=== PATIENT | female | born 1980 | race African-American/Black ===

== ENCOUNTER → 2016-10-21 | Outpatient (CLI) | payer MEDICAID | LOC: RAD 10:10 | PROVIDERS: ATTEND Internal Medicine Critical Care Medicine | DX: R91.1 Solitary pulmonary nodule (principal) | CPT/HCPCS: 71250 ==

== ENCOUNTER 2016-10-26 12:40 | Emergency (ER) | payer MEDICAID ==
--- NOTE | 2016-10-26 13:29 | ER Document Report ---
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 Patient notes initially started as a sore throat fever. Patient had a CT performed a few days prior when she first had the symptoms. Patient denies any other concerns. Patient does note dark sputum blood-tinged TRAVEL OUTSIDE OF THE [place] IN LAST 30 DAYS: No - HPI Onset: Last week Onset/Duration: Persistent Quality of pain: Achy Severity: Mild Pain Level: 1 Associated symptoms: Productive cough, Fever, Shortness of breath, Sore throat Exacerbated by: Denies Relieved by: Denies Similar symptoms previously: Yes Recently seen / treated by doctor: Yes - Related Data Allergies/Adverse Reactions: acetaminophen [Acetaminophen] Allergy (Verified 08/28/14 18:45) hives, throat sore diphenhydramine HCl [From Benadryl] Allergy (Verified 08/28/14 18:45) hydrocodone [Hydrocodone] Allergy (Verified 08/28/14 18:45) Sulfa (Sulfonamide Antibiotics) Allergy (Verified 08/28/14 18:45) sumatriptan [From Imitrex] Allergy (Verified 08/28/14 18:45) sumatriptan succinate [From Imitrex] Allergy (Verified 08/28/14 18:45) BANDAIDS Allergy (Uncoded 08/28/14 18:45) Blisters Past Medical History - Social History Smoking Status: Never Smoker Cigarette use (# per day): No Chew tobacco use (# tins/day): No Smoking Education Provided: No Family History: Reviewed & Not Pertinent - Past Medical History Cardiac Medical History: Reports: Hx Hypertension Denies: Hx Coronary Artery Disease, Hx Heart Attack Pulmonary Medical History: Reports: Hx Asthma Denies: Hx Bronchitis, Hx COPD, Hx Pneumonia, Hx Tuberculosis Neurological Medical History: Reports: Hx Migraine. Denies: Hx Cerebrovascular Accident, Hx Seizures Renal/ Medical History: Reports: Hx Ectopic , Hx Kidney Stones, Hx Ovarian Cysts - left ovary removed. Denies: Hx Peritoneal Dialysis GI Medical History: Reports: Hx Gastroesophageal Reflux Disease. Denies: Hx Crohn's Disease, Hx Diverticulitis, Hx Hepatitis, Hx Hiatal Hernia, Hx Irritable Bowel, Hx Ulcer, Hx Ulcerative Colitis Musculoskeltal Medical History: Reports Hx Arthritis - RT SHOULDER, Reports Hx Musculoskeletal Trauma - rotator cuff injury Psychiatric Medical History: Reports: Hx Depression - post with 1st Infectious Medical History: Denies: Hx Hepatitis Past Surgical History: Reports: Hx Cholecystectomy, Hx Genitourinary Surgery - LEEP, Hx Gynecologic Surgery - right oophorectomy and salpingectomy, hemorrhagic left corpus luteum cyst, Hx Kidney (Renal Surgery) - urethral stricture, Hx Orthopedic Surgery - right hand, Hx Tubal Ligation - left side, Hx Urinary Tract Surgery - URETHRAL STRICTURE. Denies: Hx Hysterectomy, Hx Mastectomy, Hx Open Heart Surgery, Hx Pacemaker - Immunizations Hx Diphtheria, Pertussis, Tetanus Vaccination: Yes Review of Systems - Review of Systems Notes: REVIEW OF SYSTEMS: CONSTITUTIONAL : Denies fever, chills, or sweats. Denies recent illness. EENT: Admits to sore throat CARDIOVASCULAR: Denies chest pain. Denies palpitations or racing or irregular heart beat. Denies ankle edema. RESPIRATORY: Admits cough shortness of breath productive GASTROINTESTINAL: Denies abdominal pain or distention. Denies nausea, vomiting , or diarrhea. Denies blood in vomitus, stools, or per rectum. Denies black, tarry stools. Denies constipation. GENITOURINARY: Denies difficulty urinating, painful urination, burning, frequency, blood in urine, or discharge. FEMALE GENITOURINARY: Denies vaginal bleeding, heavy or abnormal periods, irregular periods. Denies vaginal discharge or odor. MUSCULOSKELETAL: Denies back or neck pain or stiffness. Denies joint pain or swelling. SKIN: Denies rash, lesions or sores. HEMATOLOGIC : Denies easy bruising or bleeding. LYMPHATIC: Denies swollen, enlarged glands. NEUROLOGICAL: Denies confusion or altered mental status. Denies passing out or loss of consciousness. Denies dizziness or lightheadedness. Denies headache. Denies weakness or paralysis or loss of use of either side. Denies problems with gait or speech. Denies sensory loss, numbness, or tingling. Denies seizures. PSYCHIATRIC: Denies anxiety or stress. Denies depression, suicidal ideation, or homicidal ideation. ALL OTHER SYSTEMS REVIEWED AND NEGATIVE. Dictation was performed using [email or web address] recognition software PHYSICAL EXAMINATION: GENERAL: Well-appearing, well-nourished and in no acute distress. HEAD: Atraumatic, normocephalic. EYES: Pupils equal round and reactive to light, extraocular movements intact, conjunctiva are normal. ENT: Nares patent, oropharynx clear without exudates. Moist mucous membranes. NECK: Normal range of motion, supple without lymphadenopathy LUNGS: Breath sounds clear to auscultation bilaterally and equal. No wheezes rales or rhonchi. HEART: Regular rate and rhythm without murmurs ABDOMEN: Soft, nontender, nondistended abdomen. No guarding, no rebound. No masses appreciated. Female : deferred Musculoskeletal: Normal range of motion, no pitting or edema. No cyanosis. NEUROLOGICAL: Cranial nerves grossly intact. Normal speech, normal gait. Normal sensory, motor exams PSYCH: Normal mood, normal affect. SKIN: Warm, Dry, normal turgor, no rashes or lesions noted. Physical Exam - Vital signs Vitals: Temp Pulse Resp BP Pulse Ox 97.6 F 84 20 147/91 H 99 10/26/16 12:46 10/26/16 12:46 10/26/16 12:46 10/26/16 12:46 10/26/16 12:46 Course - Re-evaluation Re-evalutation: 10/26/16 13:29 Patient physical examinations in no respiratory distress is satting 100% on room air, she requests a rapid strep test which I believe is her biggest concern. Otherwise patient stable, chest x-rays pending 10/26/16 14:23 Lab work imaging note no significant abnormality patient consistently satting well in no distress patient is stable for discharge review of previous CT noted and result given to patient After performing a Medical Screening Examination, I estimate there is LOW risk for ACUTE CORONARY SYNDROME, RESPIRATORY FAILURE, SEPSIS OR MENINGITIS, thus I consider the discharge disposition reasonable. I have reevaluated this patient multiple times and no significant life threatening changes are noted. The patient and I have discussed the diagnosis and risks, and we agree with discharging home with close follow-up. We also discussed returning to the Emergency Department immediately if new or worsening symptoms occur. We have discussed the symptoms which are most concerning (e.g., changing or worsening pain, trouble swallowing or breathing, neck stiffness, fever) that necessitate immediate return. - Vital Signs Vital signs: Temp Pulse Resp BP Pulse Ox 97.6 F 84 20 147/91 H 99 04/15/17 12:46 10/26/16 12:46 10/26/16 12:46 10/26/16 12:46 10/26/16 12:46 - Diagnostic Test Radiology reviewed: Image reviewed, Reports reviewed Discharge - Discharge Clinical Impression: SOB (shortness of breath) Condition: Stable Disposition: HOME, SELF-CARE Instructions: Dyspnea, Nonspecific ([facility]) Referrals: YAW CORDON MD [Primary Care Provider] - Follow up as needed SUZANNA MEADOWS MD [ACTIVE STAFF] - Follow up tomorrow
[2016-10-26 14:31] VITALS: BP 145/85
== END 2016-10-26 14:29 | disposition home or self-care (01) ==
LOC: ER 12:40
DX: R06.02 Shortness of breath (principal); R05 Cough; J02.9 Acute pharyngitis, unspecified; R50.9 Fever, unspecified
CPT/HCPCS: 71020; 87070; 87880; 99285

== ENCOUNTER 2017-04-17 12:10 | Emergency (ER) | payer MEDICAID ==
[2017-04-17] MEDS ORDERED: IPRATROPIUM/ALBUTEROL 0.5-2.5 MG/3 ML AMPUL NEB ONE ×2 (12:27)
[2017-04-17] MEDS ORDERED: PREDNISONE 20 MG TABLET PO ONE (12:27)
--- NOTE | 2017-04-17 12:27 | ER Document Report ---
ED General - General Chief Complaint: Productive Cough Stated Complaint: BAD COUGH Time Seen by Provider: 04/17/17 12:24 Mode of Arrival: Ambulatory Information source: Patient Notes: 36-year-old female hx of asthma presents with 1 month duration of cough productive yellow. Pt denies any fevers or chills. denies any nasea or vomiting. pt has been taking mucinex with no improvement TRAVEL OUTSIDE OF THE [place] IN LAST 30 DAYS: No - HPI Onset: Other Onset/Duration: Persistent Quality of pain: No pain Severity: Mild Pain Level: Denies Associated symptoms: Productive cough, Shortness of breath Exacerbated by: Denies Relieved by: Denies Similar symptoms previously: No Recently seen / treated by doctor: No - Related Data Allergies/Adverse Reactions: acetaminophen [Acetaminophen] Allergy (Verified 04/17/17 12:21) hives, throat sore diphenhydramine HCl [From Benadryl] Allergy (Verified 04/17/17 12:21) hydrocodone [Hydrocodone] Allergy (Verified 04/17/17 12:21) Sulfa (Sulfonamide Antibiotics) Allergy (Verified 04/17/17 12:21) sumatriptan [From Imitrex] Allergy (Verified 04/17/17 12:21) sumatriptan succinate [From Imitrex] Allergy (Verified 04/17/17 12:21) BANDAIDS Allergy (Uncoded 08/28/14 18:45) Blisters Past Medical History - Social History Smoking Status: Never Smoker Cigarette use (# per day): No Chew tobacco use (# tins/day): No Smoking Education Provided: No Family History: Reviewed & Not Pertinent - Past Medical History Cardiac Medical History: Reports: Hx Hypertension Denies: Hx Coronary Artery Disease, Hx Heart Attack Pulmonary Medical History: Reports: Hx Asthma Denies: Hx Bronchitis, Hx COPD, Hx Pneumonia, Hx Tuberculosis Neurological Medical History: Reports: Hx Migraine. Denies: Hx Cerebrovascular Accident, Hx Seizures Renal/ Medical History: Reports: Hx Ectopic , Hx Kidney Stones, Hx Ovarian Cysts - left ovary removed. Denies: Hx Peritoneal Dialysis GI Medical History: Reports: Hx Gastroesophageal Reflux Disease. Denies: Hx Crohn's Disease, Hx Diverticulitis, Hx Hepatitis, Hx Hiatal Hernia, Hx Irritable Bowel, Hx Ulcer, Hx Ulcerative Colitis Musculoskeltal Medical History: Reports Hx Arthritis - RT SHOULDER, Reports Hx Musculoskeletal Trauma - rotator cuff injury Psychiatric Medical History: Reports: Hx Depression - post with 1st Infectious Medical History: Denies: Hx Hepatitis Past Surgical History: Reports: Hx Cholecystectomy, Hx Genitourinary Surgery - LEEP, Hx Gynecologic Surgery - right oophorectomy and salpingectomy, hemorrhagic left corpus luteum cyst, Hx Kidney (Renal Surgery) - urethral stricture, Hx Orthopedic Surgery - right hand, Hx Tubal Ligation - left side, Hx Urinary Tract Surgery - URETHRAL STRICTURE. Denies: Hx Hysterectomy, Hx Mastectomy, Hx Open Heart Surgery, Hx Pacemaker - Immunizations Hx Diphtheria, Pertussis, Tetanus Vaccination: Yes Review of Systems - Review of Systems Notes: REVIEW OF SYSTEMS: CONSTITUTIONAL : Denies fever, chills, or sweats. Denies recent illness. EENT: Denies eye, ear, throat, or mouth pain or symptoms. Denies nasal or sinus congestion or discharge. Denies throat, tongue, or mouth swelling or difficulty swallowing. CARDIOVASCULAR: Denies chest pain. Denies palpitations or racing or irregular heart beat. Denies ankle edema. RESPIRATORY: admits to productive cough GASTROINTESTINAL: Denies abdominal pain or distention. Denies nausea, vomiting , or diarrhea. Denies blood in vomitus, stools, or per rectum. Denies black, tarry stools. Denies constipation. GENITOURINARY: Denies difficulty urinating, painful urination, burning, frequency, blood in urine, or discharge. FEMALE GENITOURINARY: Denies vaginal bleeding, heavy or abnormal periods, irregular periods. Denies vaginal discharge or odor. MUSCULOSKELETAL: Denies back or neck pain or stiffness. Denies joint pain or swelling. SKIN: Denies rash, lesions or sores. HEMATOLOGIC : Denies easy bruising or bleeding. LYMPHATIC: Denies swollen, enlarged glands. NEUROLOGICAL: Denies confusion or altered mental status. Denies passing out or loss of consciousness. Denies dizziness or lightheadedness. Denies headache. Denies weakness or paralysis or loss of use of either side. Denies problems with gait or speech. Denies sensory loss, numbness, or tingling. Denies seizures. PSYCHIATRIC: Denies anxiety or stress. Denies depression, suicidal ideation, or homicidal ideation. ALL OTHER SYSTEMS REVIEWED AND NEGATIVE. PHYSICAL EXAMINATION: GENERAL: Well-appearing, well-nourished and in no acute distress. HEAD: Atraumatic, normocephalic. EYES: Pupils equal round and reactive to light, extraocular movements intact, conjunctiva are normal. ENT: Nares patent, oropharynx clear without exudates. Moist mucous membranes. NECK: Normal range of motion, supple without lymphadenopathy LUNGS: coarse wheezing. HEART: Regular rate and rhythm without murmurs ABDOMEN: Soft, nontender, nondistended abdomen. No guarding, no rebound. No masses appreciated. Female : deferred Musculoskeletal: Normal range of motion, no pitting or edema. No cyanosis. NEUROLOGICAL: Cranial nerves grossly intact. Normal speech, normal gait. Normal sensory, motor exams PSYCH: Normal mood, normal affect. SKIN: Warm, Dry, normal turgor, no rashes or lesions noted. Dictation was performed using [employer] voice recognition software Physical Exam - Vital signs Vitals: Temp Pulse BP Pulse Ox 98.6 F 91 146/111 H 98 04/17/17 12:19 04/17/17 12:19 04/17/17 12:19 04/17/17 12:19 Course - Re-evaluation Re-evalutation: 04/17/17 12:32 X-ray DuoNeb steroids pending 04/17/17 13:36 X-ray noted no significant abnormality, patient has no DVT or PE risk factors, since she has had a productive cough for 1 month and will start antibiotics even though no obvious pneumonia is noted After performing a Medical Screening Examination, I estimate there is LOW risk for malignant otitis media, mastoiditis, MENINGITIS, or ACUTE CORONARY SYNDROME , thus I consider the discharge disposition reasonable. I have reevaluated this patient multiple times and no significant life threatening changes are noted. The patient and I have discussed the diagnosis and risks, and we agree with discharging home to follow-up on an outpatient basis with the understanding that symptoms and presentations can change. We also discussed returning to the Emergency Department immediately if new or worsening symptoms occur. We have discussed the symptoms which are most concerning (e.g., high fevers, confusion) that necessitate immediate return. - Vital Signs Vital signs: Temp Pulse Resp BP Pulse Ox 98.6 F 91 146/111 H 98 04/17/17 12:19 04/17/17 12:19 04/17/17 12:19 04/17/17 12:19 - Diagnostic Test Radiology reviewed: Image reviewed, Reports reviewed Discharge - Discharge Clinical Impression: Pneumonia Qualifiers: Pneumonia type: due to unspecified organism Laterality: unspecified laterality Lung location: unspecified part of lung Qualified Code(s): J18.9 - Pneumonia, unspecified organism Condition: Stable Disposition: HOME, SELF-CARE Instructions: Pneumonia ([facility]) Additional Instructions: Follow up with your physician tomorrow for further care or return to the ED IMMEDIATELY if symptoms worsen or new concerns occur. If you cannot afford to follow up with your primary care physician a list of low cost clinics have been provided at the end of your discharge papers as well. Prescriptions: Azithromycin 250 mg PO ASDIR PRN #6 tablet PRN Reason: Prednisone [Deltasone 20 mg Tablet] 3 tab PO DAILY 5 Days tablet
--- NOTE | 2017-04-17 13:33 | RADIOLOGY REPORT (SQ) ---
EXAM DESCRIPTION: CHEST PA/LAT COMPLETED DATE/TIME: 04/17/2017 12:38 pm REASON FOR STUDY: sob asthma COMPARISON: Chest films 08/28/2014, 10/26/2016 CT chest 10/21/2016, 04/07/2015 EXAM PARAMETERS: NUMBER OF VIEWS: two views TECHNIQUE: Digital Frontal and Lateral radiographic views of the chest acquired. RADIATION DOSE: NA LIMITATIONS: none FINDINGS: LUNGS AND PLEURA: No opacities, masses or pneumothorax. No pleural effusion. MEDIASTINUM AND HILAR STRUCTURES: No masses or contour abnormalities. HEART AND VASCULAR STRUCTURES: Heart normal size. No evidence for failure. BONES: No acute findings. HARDWARE: Clips right upper quadrant post cholecystectomy OTHER: No other significant finding. IMPRESSION: NO SIGNIFICANT RADIOGRAPHIC FINDING IN THE CHEST. TECHNICAL DOCUMENTATION: JOB ID: [id number] [employer]- All Rights Reserved
[2017-04-17 13:56] VITALS: BP 144/88
== END 2017-04-17 13:56 | disposition home or self-care (01) ==
LOC: ER 12:10
DX: J18.9 Pneumonia, unspecified organism (principal); I10 Essential (primary) hypertension; Z88.6 Allergy status to analgesic agent; Z88.2 Allergy status to sulfonamides; Z90.49 Acquired absence of other specified parts of digestive tract
CPT/HCPCS: 94640 ×2; 99283; 71020; J7512; J7620

== ENCOUNTER 2017-10-08 13:37 | Emergency (ER) | payer MEDICAID ==
[2017-10-08] MEDS ORDERED: ALBUTEROL SULFATE 0.083% NEB 2.5 MG/3 ML AMPUL NEB ONE (14:04)
--- NOTE | 2017-10-08 14:06 | ER Document Report ---
ED Medical Screen (RME) - General Chief Complaint: Breathing Difficulty Stated Complaint: DIFFICULTY BREATHING Time Seen by Provider: 10/08/17 14:04 Notes: Patient presents with shortness of breath weakness mild chest pain and dizziness. She states she has a history of asthma but this does not feel like her asthma attack. She also states she has a history of blood clots and took Coumadin for approximately 6 months. She states she is unsure if the clot was in her leg or her lung. She states it happened several years ago while she was . She does not smoke but is currently on the Depakote shot. Patient is tachycardic and tachypneic with shallow respirations in triage. Sats are 100 %. TRAVEL OUTSIDE OF THE [place] IN LAST 30 DAYS: No - Related Data Allergies/Adverse Reactions: acetaminophen [Acetaminophen] Allergy (Verified 04/17/17 12:21) hives, throat sore diphenhydramine HCl [From Benadryl] Allergy (Verified 04/17/17 12:21) hydrocodone [Hydrocodone] Allergy (Verified 04/17/17 12:21) Sulfa (Sulfonamide Antibiotics) Allergy (Verified 04/17/17 12:21) sumatriptan [From Imitrex] Allergy (Verified 04/17/17 12:21) sumatriptan succinate [From Imitrex] Allergy (Verified 04/17/17 12:21) BANDAIDS Allergy (Uncoded 08/28/14 18:45) Blisters Past Medical History - Social History Chew tobacco use (# tins/day): No Frequency of alcohol use: None Drug Abuse: Marijuana Family history: Reviewed & Not Pertinent - Past Medical History Cardiac Medical History: Reports: Hx Hypertension Denies: Hx Coronary Artery Disease, Hx Heart Attack Pulmonary Medical History: Reports: Hx Asthma Denies: Hx Bronchitis, Hx COPD, Hx Pneumonia, Hx Tuberculosis Neurological Medical History: Reports: Hx Migraine. Denies: Hx Cerebrovascular Accident, Hx Seizures Renal/ Medical History: Reports: Hx Ectopic , Hx Kidney Stones, Hx Ovarian Cysts - left ovary removed. Denies: Hx Peritoneal Dialysis GI Medical History: Reports: Hx Gastroesophageal Reflux Disease. Denies: Hx Crohn's Disease, Hx Diverticulitis, Hx Hepatitis, Hx Hiatal Hernia, Hx Irritable Bowel, Hx Ulcer, Hx Ulcerative Colitis Musculoskeltal Medical History: Reports Hx Arthritis - RT SHOULDER, Reports Hx Musculoskeletal Trauma - rotator cuff injury Psychiatric Medical History: Reports: Hx Depression - post with 1st Infectious Medical History: Denies: Hx Hepatitis Past Surgical History: Reports: Hx Cholecystectomy, Hx Genitourinary Surgery - LEEP, Hx Gynecologic Surgery - right oophorectomy and salpingectomy, hemorrhagic left corpus luteum cyst, Hx Kidney (Renal Surgery) - urethral stricture, Hx Orthopedic Surgery - right hand, Hx Tubal Ligation - left side, Hx Urinary Tract Surgery - URETHRAL STRICTURE. Denies: Hx Hysterectomy, Hx Mastectomy, Hx Open Heart Surgery, Hx Pacemaker - Immunizations Hx Diphtheria, Pertussis, Tetanus Vaccination: Yes History of Influenza Vaccine for 04/2017 - 09/2017 Season: No Physical Exam - Vital signs Vitals: Pulse Resp BP Pulse Ox 126 H 28 H 160/137 H 100 10/08/17 13:42 10/08/17 13:42 10/08/17 13:42 10/08/17 13:42 Course - Vital Signs Vital signs: Temp Pulse Resp BP Pulse Ox 126 H 28 H 160/137 H 100 10/08/17 13:42 10/08/17 13:42 10/08/17 13:42 10/08/17 13:42
--- NOTE | 2017-10-08 14:31 | EKG REPORT ---
SEVERITY:- BORDERLINE ECG - SINUS TACHYCARDIA PROBABLE LEFT ATRIAL ABNORMALITY BORDERLINE T WAVE ABNORMALITIES, ANTEROLATERAL LEADS, NEW, COMPARED TO 08/28/17 EKG. : Confirmed by: Luigi Boyce MD 08-Oct-2017 14:30:40
[2017-10-08 15:18] LABS: ABSOLUTE LYMPHOCYTES (AUTO) 2.6 10^3/uL (0.5-4.7); ABSOLUTE MONOCYTES (AUTO) 0.3 10^3/uL (0.1-1.4); ABSOLUTE NEUT (AUTO) 3.5 10^3/uL (1.7-8.2); BASOPHILS % (AUTO) 0.7 % (0-2); EOSINOPHILS % (AUTO) 0.7 % (0-6); HEMATOCRIT 44.2 % (36.0-47.0); HEMOGLOBIN 14.3 g/dL (12.0-15.5); LYMPHOCYTES % (AUTO) 39.9 % (13-45); MEAN CORPUSCULAR HEMOGLOBIN 26.6 pg (27.0-33.4); MEAN CORPUSCULAR HGB CONC 32.4 g/dL (32.0-36.0); MEAN CORPUSCULAR VOLUME 82 fl (80-97); MONOCYTES % (AUTO) 4.8 % (3-13); PLATELET COUNT 376 10^3/uL (150-450); RED BLOOD COUNT 5.38 10^6/uL (3.72-5.28); RED CELL DISTRIBUTION WIDTH 14.6 % (11.5-14.0); SEGMENTED NEUTROPHILS % (AUTO) 53.9 % (42-78); TOTAL CELLS COUNTED % (AUTO) 100 %; WHITE BLOOD COUNT 6.5 10^3/uL (4.0-10.5)
[2017-10-08 15:32] LABS: ALANINE AMINOTRANSFERASE 23 U/L (9-52); ALBUMIN 4.4 g/dL (3.5-5.0); ALKALINE PHOSPHATASE 77 U/L (38-126); ANION GAP 11 (5-19); ASPARTATE AMINO TRANSFERASE 17 U/L (14-36); BILIRUBIN,DIRECT 0.3 mg/dL (0.0-0.4); BILIRUBIN,TOTAL 0.5 mg/dL (0.2-1.3); BLOOD UREA NITROGEN 10 mg/dL (7-20); CALCIUM 10.1 mg/dL (8.4-10.2); CARBON DIOXIDE 25 mmol/L (22-30); CHLORIDE 109 mmol/L (98-107); GLUCOSE 93 mg/dL (75-110); POTASSIUM 3.8 mmol/L (3.6-5.0); SODIUM 144.5 mmol/L (137-145); TOTAL PROTEIN 7.7 g/dL (6.3-8.2)
[2017-10-08 15:44] LABS: NT PRO BNP 28 pg/mL (<125)
[2017-10-08 15:45] LABS: TROPONIN I < 0.012 ng/mL
[2017-10-08 16:05] LABS: APPEARANCE,URINE SLIGHTLY-CLOUDY; BILIRUBIN,URINE NEGATIVE (NEGATIVE); COLOR,URINE YELLOW; GLUCOSE, URINE NEGATIVE (NEGATIVE); KETONES,URINE NEGATIVE (NEGATIVE); LEUKOCYTE ESTERASE,URINE NEGATIVE (NEGATIVE); NITRITE,URINE NEGATIVE (NEGATIVE); PROTEIN,URINE NEGATIVE (NEGATIVE); URINE SPECIFIC GRAVITY 1.023
--- NOTE | 2017-10-08 16:40 | RADIOLOGY REPORT (SQ) ---
EXAM DESCRIPTION: CTA CHEST COMPLETED DATE/TIME: 10/08/2017 4:18 pm REASON FOR STUDY: cp/sob/hx dvt COMPARISON: Chest x-ray 04/17/2017 CT chest 10/21/2016 TECHNIQUE: CT scan of the chest performed using helical scanning technique with dynamic intravenous contrast injection. Images reviewed with lung, soft tissue and bone windows. Reconstructed coronal and sagittal MPR images reviewed. Additional 3 dimensional post-processing performed to develop Maximal Intensity Projection images (VT P). All images stored on PACS. All CT scanners at this facility use dose modulation, iterative reconstruction, and/or weight based d osing when appropriate to reduce radiation dose to as low as reasonably achievable (ALARA). [facility]: Dose Right [facility]: CareDose [facility]: Dose Right [facility]: Teradose 4D [facility]: [employer] CONTRAST TYPE AND DOSE: contrast/concentration: Isovue 370.00 mg/ml; Total Contrast Delivered: 67.0 ml; Total Saline Delivered: 59.6 ml Contrast bolus optimized for the pulmonary arteries. Not diagnostic for the aorta. RENAL FUNCTION: BUN 10 creatinine 0.74 RADIATION DOSE: CT Rad equipment meets quality standard of care and radiation dose reduction techniq ues were employed. CTDIvol: 13.2 - 14.3 mGy. DLP: 501 mGy-cm. . LIMITATIONS: None. FINDINGS: LUNGS AND PLEURA: A stable small calcified granuloma is present in the right upper lobe, a bout 3 mm. No pulmonary infiltrates, pleural effusions, or additional pulmonary nodules are seen. AORTA AND GREAT VESSELS: No aneurysm. No dissection. HEART: No pericardial effusion. No significant coronary artery calcifications. PULMONARY ARTERIES: No emboli visualized in the main pulmonary arteries or the segmental branches. HILAR AND MEDIASTINAL STRUCTURES: No identified masses or abnormal nodes. HARDWARE: None in the chest. UPPER ABDOMEN: No significant findings. Limited exam. THYROID AND OTHER SOFT TISSUES: No masses. No adenopathy. BONES: No acute or significant finding. 3D MIPS: Confirm above findings. OTHER: No other significant finding. IMPRESSION: 1. NORMAL CTA OF THE CHEST. NO PULMONARY EMBOLI. 2. STABLE CALCIFIED RIGHT UPPER LOBE GRANULOMA. COMMENT: Quality ID # [id number]: Final reports with documentation of one or more dose reduction techniques (e.g., Automated exposure control, adjustment of the mA and/or kV according to patient size, use of iterative reconstruction technique) TECHNICAL DOCUMENTATION: JOB ID: [id number] [employer]- All Rights Reserved Reading location - IP/workstation name: [email or web address]
--- NOTE | 2017-10-08 17:07 | ER Document Report ---
ED Respiratory Problem - General Chief Complaint: Breathing Difficulty Stated Complaint: DIFFICULTY BREATHING Time Seen by Provider: 10/08/17 14:04 Notes: Patient is here today because of difficulty breathing. 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 She was putting a "relaxer" on a customer's hair and she started to have some difficulty breathing. She thought it was her asthma flaring up. She tried her asthma medicine pump as well as took some steroid pills she had leftover. That did not seem to help and she kept feeling like she was getting worse and kept having difficulty getting her breath so she came here. She felt very tired and weak and dizzy. Never lost consciousness. Has a chronic cough is been present for at least 3 months. Has sweats, but not aware of any fevers. Patient has a history of asthma on Spiriva and albuterol inhalers. Not currently on prescribed prednisone or steroids. Patient has a history of blood clots in her lower extremities and has previously been on both Lovenox as well as Coumadin. She is been here and other places and had multiple scans of her lungs over the past 4-5 years, none of them have shown any recurrent clots. PMH: Cholecystectomy, bilateral oophorectomy, tubal surgery. TRAVEL OUTSIDE OF THE [place] IN LAST 30 DAYS: No - Related Data Allergies/Adverse Reactions: acetaminophen [Acetaminophen] Allergy (Verified 04/17/17 12:21) hives, throat sore diphenhydramine HCl [From Benadryl] Allergy (Verified 04/17/17 12:21) hydrocodone [Hydrocodone] Allergy (Verified 04/17/17 12:21) Sulfa (Sulfonamide Antibiotics) Allergy (Verified 04/17/17 12:21) sumatriptan [From Imitrex] Allergy (Verified 04/17/17 12:21) sumatriptan succinate [From Imitrex] Allergy (Verified 04/17/17 12:21) BANDAIDS Allergy (Uncoded 08/28/14 18:45) Blisters Past Medical History - Social History Smoking Status: Never Smoker Chew tobacco use (# tins/day): No Frequency of alcohol use: None Drug Abuse: Marijuana Family History: Reviewed & Not Pertinent Patient has suicidal ideation: No Patient has homicidal ideation: No - Past Medical History Cardiac Medical History: Reports: Hx DVT, Hx Hypertension Denies: Hx Pulmonary Embolism Pulmonary Medical History: Reports: Hx Asthma Neurological Medical History: Reports: Hx Migraine Renal/ Medical History: Reports: Hx Ectopic , Hx Kidney Stones, Hx Ovarian Cysts - left ovary removed GI Medical History: Reports: Hx Gastroesophageal Reflux Disease Musculoskeltal Medical History: Reports Hx Arthritis - RT SHOULDER, Reports Hx Musculoskeletal Trauma - rotator cuff injury Psychiatric Medical History: Reports: Hx Depression - post with 1st Past Surgical History: Reports: Hx Cholecystectomy, Hx Genitourinary Surgery - LEEP, Hx Gynecologic Surgery - right oophorectomy and salpingectomy, hemorrhagic left corpus luteum cyst, Hx Kidney (Renal Surgery) - urethral stricture, Hx Orthopedic Surgery - right hand, Hx Tubal Ligation, Hx Urinary Tract Surgery - URETHRAL STRICTURE - Immunizations Hx Diphtheria, Pertussis, Tetanus Vaccination: Yes Review of Systems - Review of Systems Notes: REVIEW OF SYSTEMS: CONSTITUTIONAL : Denies fever. EENT: Denies eye, ear, nose or mouth or throat pain or other symptoms. CARDIOVASCULAR: Denies chest pain. RESPIRATORY: See HPI. GASTROINTESTINAL: Denies abdominal pain or nausea, vomiting, or diarrhea. GENITOURINARY: Denies difficulty or painful urinating, urinary frequency, blood in urine. MUSCULOSKELETAL: Denies back or neck pain. Denies joint pain or swelling. Denies pain or swelling of either lower leg. SKIN: Denies rash or skin lesions. NEUROLOGICAL: Denies LOC or altered mental status. Denies headache. Denies sensory loss or motor deficits. ALL OTHER SYSTEMS REVIEWED AND NEGATIVE. Physical Exam - Vital signs Vitals: Pulse Resp BP Pulse Ox 126 H 28 H 160/137 H 100 10/08/17 13:42 10/08/17 13:42 10/08/17 13:42 10/08/17 13:42 Interpretation: Tachycardic, Tachypneic - Notes Notes: PHYSICAL EXAMINATION: GENERAL: Well-appearing, in no acute distress. Anxious. HEAD: Atraumatic, normocephalic. EYES: Pupils equal round and reactive to light, extraocular movements intact. ENT: oropharynx clear without exudates. Moist mucous membranes. NECK: Normal range of motion, supple. LUNGS: Breath sounds clear and equal bilaterally. HEART: Regular rate and rhythm without murmurs. ABDOMEN: Soft, nontender. No guarding or rebound. No masses. BACK: No tenderness throughout entire back. EXTREMITIES: Normal range of motion without pain. Negative Homans bilaterally. NEUROLOGICAL: Normal speech, normal gait. Normal sensory, motor, and reflex exams. Awake, alert, and oriented x3. Cranial nerves normal. PSYCH: Normal mood, normal affect. Anxious. SKIN: Warm, dry, no rashes. Course - Vital Signs Vital signs: Temp Pulse Resp BP Pulse Ox 98.7 F 126 H 23 H 131/102 H 99 10/08/17 16:59 10/08/17 13:42 10/08/17 17:01 10/08/17 17:00 10/08/17 17:01 - Laboratory Result Diagrams: 10/08/17 14:50 10/08/17 14:50 Laboratory results interpreted by me: 10/08/17 10/08/17 10/08/17 14:50 14:50 14:50 RBC 5.38 H MCH 26.6 L RDW 14.6 H Chloride 109 H Urine Blood MODERATE H Urine Urobilinogen 4.0 H - Diagnostic Test Radiology reviewed: Image reviewed, Reports reviewed - CTA scan of the chest is negative for pulmonary emboli. Discharge - Discharge Clinical Impression: Asthma, Pollen allergies Condition: Stable Disposition: HOME, SELF-CARE Additional Instructions: ASTHMA: You have been diagnosed as having asthma. This is a condition where there is episodic tightness in the bronchial tubes. Allergies, infections, and polluted or cold air may be contributing factors. Emergency treatment of a severe asthma attack may include adrenaline shots , or bronchodilator aerosol. You may feel lightheaded, have a decreased exercise tolerance and a rapid pulse for an hour or two. Rest and get plenty of fluids. Home treatment of asthma requires bronchodilator drugs. These can be administered by injection, inhalation, or by mouth. Antibiotics and corticosteroids may be required for some patients. You should avoid chemical fumes, dusts, pollens, and exercising in very cold or dry air. If you smoke, stop!! If you develop a fever, increased wheezing, chest pain, or severe shortness of breath, you should contact the doctor immediately. STEROID MEDICATION: You have been given an injection of or oral medicine of the cortisone/ steroid class. This medication is used to control inflammation or allergy. Nabil t is usually only given for a short period of time, until the acute process subsides. There are usually no side effects from short-term use of cortisone-like medications. Some persons feel an increased sense of well-being and are not sleepy at bedtime. Long-term use of cortisone medications is best avoided, unless required for a severe condition. If your condition does not remit, or relapses after the course of corticosteroid medication, you should consult your physician. Continue to use your own INHALED BRONCHODILATORS: You have received treatment(s) of and/or prescription for an inhaled bronchodilator -- a medication which stimulates the airways in the lung to dilate. This improves the flow of air in asthma, bronchitis, and emphysema. These medicines have some similarity to adrenaline, and can cause similar side effects: shakiness, racing heart, and a sense of nervousness. These side effects decrease with time. Contact your doctor if these side effects are severe. Do not over-use the medicine. Too-frequent use of the inhaler may make it ineffective. Call your doctor if the inhaler is not controlling your symptoms at the prescribed doses. Take [id number] Claritin or Zyrtec daily for the next few weeks while it is heavy pollen season. FOLLOW-UP CARE: If you have been referred to a physician for follow-up care, call the physician s office for an appointment as you were instructed or within the next two days. If you experience worsening or a significant change in your symptoms, notify the physician immediately or return to the Emergency Department at any time for re-evaluation. Prescriptions: Prednisone [Deltasone 10 mg Tablet] 10 mg PO ASDIR PRN #21 tablet PRN Reason: Referrals: YAW CORDON MD [Primary Care Provider] - Follow up as needed
[2017-10-08 17:21] VITALS: BP 131/102
== END 2017-10-08 17:21 | disposition home or self-care (01) ==
LOC: ER 13:37
DX: J45.909 Unspecified asthma, uncomplicated (principal); R53.1 Weakness; Z86.718 Personal history of other venous thrombosis and embolism; Z79.01 Long term (current) use of anticoagulants; I10 Essential (primary) hypertension; F41.9 Anxiety disorder, unspecified
CPT/HCPCS: 36415; 71275; 80053; 81001; 81025; 83880; 84484; 85025; 93005; 93010; 94640; 99285

== ENCOUNTER → 2017-11-12 | Outpatient (CLI) | payer MEDICAID ==
[2017-11-12 13:21] LABS: ABSOLUTE LYMPHOCYTES (AUTO) 1.8 10^3/uL (0.5-4.7); ABSOLUTE MONOCYTES (AUTO) 0.3 10^3/uL (0.1-1.4); ABSOLUTE NEUT (AUTO) 3.5 10^3/uL (1.7-8.2); BASOPHILS % (AUTO) 0.7 % (0-2); EOSINOPHILS % (AUTO) 0.9 % (0-6); HEMATOCRIT 41.5 % (36.0-47.0); HEMOGLOBIN 13.5 g/dL (12.0-15.5); LYMPHOCYTES % (AUTO) 31.3 % (13-45); MEAN CORPUSCULAR HEMOGLOBIN 26.6 pg (27.0-33.4); MEAN CORPUSCULAR HGB CONC 32.5 g/dL (32.0-36.0); MEAN CORPUSCULAR VOLUME 82 fl (80-97); MONOCYTES % (AUTO) 5.3 % (3-13); PLATELET COUNT 354 10^3/uL (150-450); RED BLOOD COUNT 5.07 10^6/uL (3.72-5.28); RED CELL DISTRIBUTION WIDTH 14.6 % (11.5-14.0); SEGMENTED NEUTROPHILS % (AUTO) 61.8 % (42-78); TOTAL CELLS COUNTED % (AUTO) 100 %; WHITE BLOOD COUNT 5.7 10^3/uL (4.0-10.5)
[2017-11-14 09:28] LABS: BORDETELLA PERTUSSIS IGM AB <1.0 index (0.0-0.9)
[2017-11-15 18:37] LABS: ASPERGILLUS FLAVUS Negative (Neg:<1:1); ASPERGILLUS FUMIGATUS Negative (Neg:<1:1)
[2017-11-16 03:36] LABS: M001-IGE PENICILLIUM CHRYSOGEN <0.10 kU/L (Class 0); M002-IGE CLADOSPORIUM HERBARUM <0.10 kU/L (Class 0); M003-IGE ASPERGILLUS FUMIGATUS <0.10 kU/L (Class 0); M004-IGE MUCOR RACEMOSUS <0.10 kU/L (Class 0); M005-IGE CANDIDA ALBICANS <0.10 kU/L (Class 0); M006-IGE ALTERNARIA ALTERNATA <0.10 kU/L (Class 0); M009-IGE FUSARIUM PROLIFERATUM <0.10 kU/L (Class 0); M012-IGE AUREOBASIDI PULLULANS <0.10 kU/L (Class 0); M013-IGE PHOMA BETAE <0.10 kU/L (Class 0); M014-IGE EPICOCCUM PURPURASCEN <0.10 kU/L (Class 0)
[2017-11-16 06:21] LABS: ASPERGILLUS NIGER Negative (Neg:<1:1); M010-IGE STEMPHYLIUM HERBARUM <0.10 kU/L (Class 0)
== END ==
LOC: OD 11:51
PROVIDERS: ATTEND Physician Assistant
DX: J45.909 Unspecified asthma, uncomplicated (principal); R05 Cough
CPT/HCPCS: 36415; 82785; 85025; 86003; 86606; 86615; 87070; 87077; 87186; 87205

== ENCOUNTER 2018-11-25 05:29 | Observation (INO) | payer MEDICAID ==
[2018-11-23 10:09] LABS: HEMATOCRIT 42.2 % (36.0-47.0); HEMOGLOBIN 13.8 g/dL (12.0-15.5); MEAN CORPUSCULAR HEMOGLOBIN 26.6 pg (27.0-33.4); MEAN CORPUSCULAR HGB CONC 32.6 g/dL (32.0-36.0); MEAN CORPUSCULAR VOLUME 82 fl (80-97); PLATELET COUNT 341 10^3/uL (150-450); RED BLOOD COUNT 5.17 10^6/uL (3.72-5.28); RED CELL DISTRIBUTION WIDTH 14.7 % (11.5-14.0); WHITE BLOOD COUNT 4.9 10^3/uL (4.0-10.5)
[~2018-11-25 05:29] MED LIST: ALBUTEROL SULFATE 0.083% NEB 2.5 MG/3 ML AMPUL NEB PRN; LIDOCAINE 0.5% INJ-PF (5 MG/ML) 50 ML SDV SUBCUT PRN; METRONIDAZOLE 500 MG/NS RTU 500 MG/100 ML RTUPB IV PRN; RINGERS SOLUTION,LACTATED 1,000 ML IV PRN
[2018-11-25] MEDS ORDERED: METRONIDAZOLE 500 MG/NS RTU 500 MG/100 ML RTUPB IV ONE (05:35)
[2018-11-25] MEDS ORDERED: ALBUTEROL SULFATE 0.083% NEB 2.5 MG/3 ML AMPUL NEB ONE (05:59)
[2018-11-25] MEDS ORDERED: HYDROMORPHONE HCL INJ/PF 2 MG/ML AMPULE ONE (07:05)
[2018-11-25] MEDS ORDERED: FENTANYL CITRATE INJ/PF 100 MCG/2 ML AMPUL ONE (07:05)
[2018-11-25] MEDS ORDERED: MIDAZOLAM 2 MG/2 ML INJ ONE (07:05)
[2018-11-25] MEDS ORDERED: BUPIVACAINE HCL 0.5%-EPI 1:200000 INJ/PF 30 ML VIAL ONE (07:06)
[2018-11-25] MEDS ORDERED: PROPOFOL INJ 200 MG/20 ML VIAL IV ONE (07:06)
[2018-11-25] MEDS ORDERED: BUPIVACAINE INJ/PF LIPOSOME/PF 266 MG/20 ML SDV ONE (07:07)
[2018-11-25] MEDS ORDERED: LIDOCAINE 2% INJ (20 MG/ML) 20 ML MDV ONE (07:07)
[2018-11-25] MEDS ORDERED: PROMETHAZINE HCL INJ 25 MG/1 ML VIAL ONE (07:19)
[2018-11-25] MEDS ORDERED: SCOPOLAMINE HYDROBROMIDE 1.5 MG PATCH.TD72 ONE (07:20)
[2018-11-25] MEDS ORDERED: FENTANYL CITRATE INJ/PF 100 MCG/2 ML AMPUL IV PRN ×3 (07:50)
[2018-11-25] MEDS ORDERED: PROMETHAZINE HCL INJ 25 MG/1 ML VIAL IV PRN (07:50)
[2018-11-25] MEDS ORDERED: MORPHINE SULFATE 10 MG/ML INJ IV PRN (07:50)
--- NOTE | 2018-11-25 08:52 | Discharge Summary ---
Discharge Summary (SDC) - Discharge Final Diagnosis: hemorrhoids Date of Surgery: 11/25/18 Discharge Date: 11/25/18 Condition: Good Treatment or Instructions: [facility] [address] [place] [id number] Hemorrhoid or Anal Surgery Discharge Instructions 1. General Information: a. DO NOT DRIVE a car or operate dangerous machinery for 4-7 days or while taking narcotic prescription pain pills. b. DO NOT consume alcohol, tranquilizers, sleeping medications or any non- prescribed medications for 24 hours unless approved by your doctor or as long as taking narcotic prescription medications. c. DO NOT make important decisions or sign any important papers for the next 24 hours. d. Have a responsible person with you tonight. 2. Activity Restrictions: 4 weeks. a. Avoid heavy lifting or straining until you feel more comfortable. b. It is fine to go for walks, up and down steps, ride in a car. 3. Treatment: a. Tomorrow morning begin warm water sitz baths (soaks) with plain water. You may do 3-4 times per day or after bowel movements to help relieve spasm and pain. Place a dry gauze or panty liner over the sight to catch drainage and blood to help keep your clothing dry. b. You may use Tucks or other medicated wipes to help clean the area as needed. c. If packing used it will pass spontaneously with bowel function. External dressings and medicated gauze should be removed before sitz baths. 4. Medications: a. You may take the prescription tablets for pain one tablet every 6 hours. (__Ultram__). c. Resume all normal medications unless a change is specified by your doctors. d. Stool softeners are encouraged to help you for 2-4 weeks to maintain a soft stool and avoid more painful bowel movements due to pain medication. Colace is often used. e. A numbing cream may be prescribed, this can be applied after sitz baths around the perianal area before the sight is covered with a gauze pad. f. Constipation is very common after anal surgery and you may take [id number] medications to help stimulate the bowel such as Milk of Magnesia, Senokot tablets, prune juice and drink plenty of water. 5. Diet: a. Begin with clear liquids and if you do well you may then advance to normal foods low in fat and protein at first. Smaller portion size may be almanzar the first night. b. Acidic (orange juice, tomato), foods high in ruffage (grapes, celery, asparagus) and spicy foods should be avoided for comfort the first 2-3 weeks since they can cause more burning sensation with bowel movements. 6..Follow Up Care: a. Please call the office to schedule a follow up appointment with your doctor for 2 weeks. In the event of any postoperative problems or questions or you may call the office during business hours or the On-Call physician evenings and weekends at [facility]. [facility] I understand the instructions for my postoperative care as described above and a copy has been given to me. Patient/Significant Other Witness Date Prescriptions: Ketorolac Tromethamine [Toradol 10 mg Tablet] 10 mg PO Q6HP PRN #20 tablet PRN Reason: Referrals: YAW CORDON MD [Primary Care Provider] - Discharge Diet: As Tolerated Discharge Activity: Balance Activity w/Rest, No Lifting Over 10 Pounds, No Lifting/Push/Pulling, Walk Frequently Report the Following to Your Physician Immediately: Nausea, Vomiting, Increase in Pain, Fever over 101 Degrees, Unusual Bleeding, Redness, Drainage-Foul Smelling
--- NOTE | 2018-11-25 08:58 | Operative Report ---
Operative Report DATE OF SURGERY: 11/25/18 PREOPERATIVE DIAGNOSIS: Internal and external hemorrhoids, status post hemorrho idal banding. Posterior anal skin tag POSTOPERATIVE DIAGNOSIS: Same OPERATION: 1. Examination under anesthesia. 2. Four compartment hemorrhoidectomy SURGEON: CEDRIC SANCHEZ PATIENT PORTAL REPRESENTATIVE: RHINA MONTES ANESTHESIA: GA TISSUE REMOVED OR ALTERED: Four hemorrhoidectomy specimens submitted in one container COMPLICATIONS: None ESTIMATED BLOOD LOSS: 40 cc INTRAOPERATIVE FINDINGS: See below PROCEDURE: The patient was taken the preop holding area to the main operating room and general anesthesia was induced. She is placed in the prone, jackknife position, buttocks spread and taped widely. The perianal tissue was prepped and draped in sterile fashion. Surgical plan surgical timeout were conducted. The findings were significant for a posterior anal skin tag. The anal canal was millimeters. There was no evidence of fissure, or fistula. The perianal tissue was anesthetized with approximately 20 cc of quarter percent Marcaine. The anal canal was dilated up to accept 2 adult fingers. The bullet anoscope was inserted into the anal canal, inspection of the anal rectal canal performed. Findings were significant for circumferential hemorrhoids, nonthrombosed. We elected to proceed with a 4 compartment hemorrhoidectomy. All 4 compartments were excised in a similar fashion. The first hemorrhoidectomy was performed in the posterior midline position. Bullet anoscope was in position, 4-0 chromic sutures placed at the apex of the hemorrhoid, the hemorrhoid excised with a 10 blade, and Metzenbaum scissors. The amount of perianal skin removed was sufficient to include the posterior anal skin tag. The hemorrhoidectomy site was closed in a running locking fashion. The identical procedure was performed in the left lateral position, the right lateral position, and the anterior position. We took care not to excise an excessive amount of perianal skin. All 4 hemorrhoids were removed and submitted in the same container to pathology. At the conclusion of the operation, there was no significant hematoma or bleeding. Lidocaine infused Gelfoam packing was placed in the anal canal. 30 cc of dilute Exparel was injected into the perianal tissue. The patient tolerated the procedure well, rotated in the supine position, extubated, taken recovery room in stable condition. The physician assistant signal maintainer, Ms. Alex, provided assistance during this case by: Assisting retracting tissue, instillation of local anesthesia.
[2018-11-25] MEDS ORDERED: DEXAMETHASONE SOD PHOSPHATE INJ 4 MG/1 ML VIAL ONE (08:59)
[2018-11-25] MEDS ORDERED: ONDANSETRON HCL INJ/PF 4 MG/2 ML SDV ONE (08:59)
[2018-11-25] MEDS: DILTIAZEM HCL INJ 25 MG/5 ML VIAL ONE ×2 (09:50→09:56)
[2018-11-25] MEDS ORDERED: METOPROLOL TARTRATE PF/INJ 5 MG/5 ML SDV IV ONE (10:01)
[2018-11-25] MEDS ORDERED: ACETAMINOPHEN 325 MG TABLET PO PRN ×2 (10:11→13:22)
[2018-11-25] MEDS ORDERED: ONDANSETRON 4 MG TAB.RAPDIS PO PRN (10:16)
[2018-11-25] MEDS: FENTANYL CITRATE INJ/PF 100 MCG/2 ML AMPUL ONE ×2 (10:18→10:23)
[2018-11-25] MEDS ORDERED: DILTIAZEM HCL INJ 25 MG/5 ML VIAL IV ONE ×2 (10:30→11:00)
[2018-11-25 10:50] LABS: HEMOGLOBIN 13.6 g/dL (12.0-15.5); MEAN CORPUSCULAR HEMOGLOBIN 26.4 pg (27.0-33.4); MEAN CORPUSCULAR HGB CONC 32.3 g/dL (32.0-36.0); MEAN CORPUSCULAR VOLUME 82 fl (80-97); PLATELET COUNT 337 10^3/uL (150-450); RED BLOOD COUNT 5.15 10^6/uL (3.72-5.28); RED CELL DISTRIBUTION WIDTH 15.1 % (11.5-14.0); WHITE BLOOD COUNT 5.5 10^3/uL (4.0-10.5)
--- NOTE | 2018-11-25 10:50 | RADIOLOGY REPORT (SQ) ---
EXAM DESCRIPTION: CHEST SINGLE VIEW COMPLETED DATE/TIME: 11/25/2018 10:36 am REASON FOR STUDY: POST OP COMPARISON: None. EXAM PARAMETERS: NUMBER OF VIEWS: One view. TECHNIQUE: Single frontal radiographic view of the chest acquired. RADIATION DOSE: NA LIMITATIONS: None. FINDINGS: LUNGS AND PLEURA: No opacities, masses or pneumothorax. No pleural effusion. MEDIASTINUM AND HILAR STRUCTURES: No masses. Contour normal. HEART AND VASCULAR STRUCTURES: Heart normal in size. Normal vasculature. BONES: No acute findings. HARDWARE: Prior cholecystectomy. OTHER: No other significant finding. IMPRESSION: NO ACUTE RADIOGRAPHIC FINDING IN THE CHEST. TECHNICAL DOCUMENTATION: JOB ID: [id number] [employer]- All Rights Reserved Reading location - IP/workstation name: [email or web address]
[2018-11-25 11:05] LABS: ALANINE AMINOTRANSFERASE 27 U/L (9-52); ALKALINE PHOSPHATASE 76 U/L (38-126); ANION GAP 10 (5-19); ASPARTATE AMINO TRANSFERASE 19 U/L (14-36); BILIRUBIN,DIRECT 0.4 mg/dL (0.0-0.4); BLOOD UREA NITROGEN 8 mg/dL (7-20); CALCIUM 9.5 mg/dL (8.4-10.2); CARBON DIOXIDE 27 mmol/L (22-30); CHLORIDE 105 mmol/L (98-107); GLUCOSE 107 mg/dL (75-110); POTASSIUM 3.7 mmol/L (3.6-5.0); SODIUM 141.6 mmol/L (137-145); TOTAL PROTEIN 7.4 g/dL (6.3-8.2)
[2018-11-25 11:21] LABS: HEMATOCRIT 41.2 % (36.0-47.0); HEMOGLOBIN 13.6 g/dL (12.0-15.5); MEAN CORPUSCULAR HEMOGLOBIN 26.9 pg (27.0-33.4); MEAN CORPUSCULAR HGB CONC 32.9 g/dL (32.0-36.0); MEAN CORPUSCULAR VOLUME 82 fl (80-97); PLATELET COUNT 324 10^3/uL (150-450); RED BLOOD COUNT 5.05 10^6/uL (3.72-5.28); RED CELL DISTRIBUTION WIDTH 14.8 % (11.5-14.0); WHITE BLOOD COUNT 6.6 10^3/uL (4.0-10.5)
[2018-11-25 11:45] LABS: ALANINE AMINOTRANSFERASE 24 U/L (9-52); ALBUMIN 4.3 g/dL (3.5-5.0); ALKALINE PHOSPHATASE 78 U/L (38-126); ANION GAP 14 (5-19); ASPARTATE AMINO TRANSFERASE 28 U/L (14-36); BILIRUBIN,DIRECT 0.3 mg/dL (0.0-0.4); BILIRUBIN,TOTAL 0.7 mg/dL (0.2-1.3); BLOOD UREA NITROGEN 8 mg/dL (7-20); CALCIUM 9.3 mg/dL (8.4-10.2); CARBON DIOXIDE 24 mmol/L (22-30); CHLORIDE 105 mmol/L (98-107); GLUCOSE 129 mg/dL (75-110); POTASSIUM 4.3 mmol/L (3.6-5.0); TOTAL PROTEIN 7.7 g/dL (6.3-8.2)
[2018-11-25 11:56] LABS: CREATINE KINASE MB 0.66 ng/mL (<4.55)
[2018-11-25 12:01] LABS: TROPONIN I < 0.012 ng/mL
[2018-11-25] MEDS ORDERED: TRAMADOL HCL 50 MG TABLET PO PRN (13:22)
--- NOTE | 2018-11-25 14:30 | EKG REPORT ---
SEVERITY:- ABNORMAL ECG - SINUS RHYTHM PROBABLE LEFT ATRIAL ABNORMALITY NONSPECIFIC T ABNORMALITIES, ANTERIOR LEADS : Confirmed by: Luigi Boyce MD 25-Nov-2018 14:30:15
--- NOTE | 2018-11-25 14:31 | EKG REPORT ---
SEVERITY:- ABNORMAL ECG - SINUS TACHYCARDIA LEFT BUNDLE BRANCH BLOCK : Confirmed by: Luigi Boyce MD 25-Nov-2018 14:30:29
[2018-11-25] MEDS: KETOROLAC TROMETHAMINE 10 MG TABLET PO PRN ×2 (14:59→21:39)
[2018-11-25] MEDS: RINGERS SOLUTION,LACTATED 1,000 ML IV PRN (15:06)
[2018-11-25] MEDS ORDERED: LISINOPRIL 10 MG TABLET PO SCH (15:32)
[2018-11-25] MEDS ORDERED: METOPROLOL TARTRATE PF/INJ 5 MG/5 ML SDV IV PRN (15:32)
[2018-11-25] MEDS ORDERED: HYDRALAZINE HCL INJ/PF 20 MG/1 ML SDV IV PRN (15:32)
--- NOTE | 2018-11-25 15:36 | PDOC H&P ---
History of Present Illness Admission Date/PCP: 11/25/18 13:51 YAW CORDON MD Patient complains of: TACHYCARDIA History of Present Illness: ANA MARIA PEREZ is a 38 year old female with a PMH of pre-HTN. She presented to [facility] for a hemorrhoidectomy. According to Dr. Borges, the patient became tachycardic upon induction. Her heart rate increased to 120s, EKG showed new LBBB. Dr. Velazquez, cardiology, was notified. He recommended administering Lopressor and Cardizem IV. Patient's HR slowed to 90s, she returned to NSR. Plan to admit the patient to [facility] for observation of her tachycardia. Upon evaluation in the PACU, the patient is awake, oriented and slightly drowsy s/p anesthesia. She is oriented to time, place and person. Patient denies chest pain or shortness of breath at this time. However, according to the SLICING MACHINE FEEDER the patient had previously been complaining of chest pressure. Lungs are clear to auscultation. S1-S2. Pulses are palpable in the upper and lower extremities. No evidence of peripheral edema. Past Medical History Cardiac Medical History: Reports: DVT, Hypertension - not on meds for years Denies: Coronary Artery Disease, Myocardial Infarction, Pulmonary Embolism Pulmonary Medical History: Reports: Asthma - restrictive lung disease Denies: Bronchitis, Chronic Obstructive Pulmonary Disease (COPD), Pneumonia, Tuberculosis Neurological Medical History: Reports: Migraine Denies: Seizures GI Medical History: Reports: Gastroesophageal Reflux Disease Denies: Crohn's Disease, Diverticulitis, Hepatitis, Hiatal Hernia, Ulcerative Colitis Musculoskeltal Medical History: Reports: Arthritis - RT SHOULDER,rt hand Psychiatric Medical History: Reports: Depression - post with 1st Hematology: Denies: Anemia, Sickle Cell Disease Past Surgical History Past Surgical History: Reports: Cholecystectomy, Orthopedic Surgery - right hand, Tubal Ligation Denies: Amputation, Hysterectomy, Mastectomy, Pacemaker Social History Information Source: Patient Lives with: Family Smoking Status: Former Smoker Frequency of Alcohol Use: Occasional Hx Recreational Drug Use: No Drugs: None Hx Prescription Drug Abuse: No - Advance Directive Resuscitation Status: Full Code Family History Family History: Reviewed & Not Pertinent Parental Family History Reviewed: No Children Family History Reviewed: Unknown Sibling(s) Family History Reviewed.: Unknown Medication/Allergy Home Medications: Albuterol Sulfate [Proair Hfa Inhalation Aerosol 8.5 gm Mdi] 200 puff IH ASDIR PRN 11/20/18 Budesonide/Formoterol Fumarate [Symbicort Hfa 160-4.5 Mcg Inhaler 6 gm] 1 puff IH Q12 11/20/18 Tiotropium [place] [Spiriva Respimat] 4 gm IH ASDIR PRN 11/20/18 Ketorolac Tromethamine [Toradol 10 mg Tablet] 10 mg PO Q6HP PRN #20 tablet 11/25/18 Allergies/Adverse Reactions: acetaminophen [Acetaminophen] Allergy (Verified 04/17/17 12:21) hives, throat sore diphenhydramine HCl [From Benadryl] Allergy (Verified 04/17/17 12:21) hydrocodone [Hydrocodone] Allergy (Verified 04/17/17 12:21) Sulfa (Sulfonamide Antibiotics) Allergy (Verified 04/17/17 12:21) sumatriptan [From Imitrex] Allergy (Verified 04/17/17 12:21) sumatriptan succinate [From Imitrex] Allergy (Verified 04/17/17 12:21) BANDAIDS Allergy (Uncoded 08/28/14 18:45) Blisters Physical Exam Vital Signs: Temp Pulse Resp BP Pulse Ox 98.3 F 66 18 139/80 H 99 11/25/18 15:09 11/25/18 15:09 11/25/18 15:09 11/25/18 15:09 11/25/18 15:09 Intake & Output 11/24/18 11/25/18 11/26/18 06:59 06:59 06:59 Intake Total 0 1450 Output Total 340 Balance 0 1110 Weight 85.73 kg Results Laboratory Results: 11/25/18 11:09 11/25/18 11:09 11/25/18 11/25/18 11/25/18 06:52 06:52 06:52 WBC 5.5 RBC 5.15 Hgb 13.6 Hct 42.0 MCV 82 MCH 26.4 L MCHC 32.3 RDW 15.1 H Plt Count 337 Sodium 141.6 Potassium 3.7 Chloride 105 Carbon Dioxide 27 Anion Gap 10 BUN 8 Creatinine 0.71 Est GFR ( Amer) > 60 Est GFR (Non-Af Amer) > 60 Glucose 107 Calcium 9.5 Total Bilirubin 1.0 AST 19 ALT 27 Alkaline Phosphatase 76 Total Protein 7.4 Albumin 4.0 Serum HCG, Qual NEGATIVE 11/25/18 11/25/18 11:09 11:09 WBC 6.6 RBC 5.05 Hgb 13.6 Hct 41.2 MCV 82 MCH 26.9 L MCHC 32.9 RDW 14.8 H Plt Count 324 Sodium 143.0 Potassium 4.3 Chloride 105 Carbon Dioxide 24 Anion Gap 14 BUN 8 Creatinine 0.69 Est GFR ( Amer) > 60 Est GFR (Non-Af Amer) > 60 Glucose 129 H Calcium 9.3 Total Bilirubin 0.7 AST 28 ALT 24 Alkaline Phosphatase 78 Total Protein 7.7 Albumin 4.3 Serum HCG, Qual 11/25/18 11/25/18 11:09 11:09 Creatine Kinase 434 H CK-MB (CK-2) 0.66 Troponin I < 0.012 Impressions: Chest X-Ray 11/25/18 00:00 IMPRESSION: NO ACUTE RADIOGRAPHIC FINDING IN THE CHEST. Assessment and Plan - Diagnosis (1) Tachycardia Is this a current diagnosis for this admission?: Yes Plan: Sinus tachycardia noted on EKG today during routine hemorrhoidectomy EKG shows S tachycardia without evidence of infarction Treated with IV Lopressor and Cardizem HR now controlled, rhythm returned to NSR Admit to med/telemetry for observation (2) HTN (hypertension) Qualifiers: Hypertension type: essential hypertension Qualified Code(s): I10 - Essential (primary) hypertension Is this a current diagnosis for this admission?: Yes Plan: PMH pre-HTN Poor BP control today Initiate lisinopril 10 mg daily IV hydralazine PRN SBP>170 IV Lopressor as needed SBP>170 or HR>120 (3) Hemorrhoids Qualifiers: Hemorrhoid type: unspecified Qualified Code(s): K64.9 - Unspecified hemorrhoids Is this a current diagnosis for this admission?: Yes Plan: s/p hemorrhoidectomy PRN Tylenol and tramadol for pain Ice pack to affected site for relief - Time Time Spent with patient: 15-24 minutes Medications reviewed and adjusted accordingly: Yes Anticipated discharge: Home Within: within 48 hours - Inpatient Certification Based on my medical assessment, after consideration of the patient's comorbidities, presenting symptoms, or acuity I expect that the services needed warrant INPATIENT care.: Yes I certify that my determination is in accordance with my understanding of Medicare's requirements for reasonable and necessary INPATIENT services [42 CFR 412.3e].: Yes Medical Necessity: Need For Continuous Telemetry Monitoring, Risk of Complica tion if Not Cared For in Hospital
[2018-11-25] MEDS: AMLODIPINE BESYLATE 10 MG TABLET PO SCH (17:45)
[2018-11-25 18:07] LABS: CREATINE KINASE MB 1.25 ng/mL (<4.55)
[2018-11-25 18:15] LABS: TROPONIN I < 0.012 ng/mL
[2018-11-25] MEDS ORDERED: KETOROLAC TROMETHAMINE 10 MG TABLET PO ONE (19:00)
[2018-11-25] MEDS ORDERED: ROCURONIUM BROMIDE INJ 50 MG/5 ML VIAL IV ONE (19:16)
[2018-11-25] MEDS ORDERED: SUCCINYLCHOLINE CHLORIDE INJ 200 MG/10 ML VIAL ONE (19:16)
[2018-11-25] MEDS ORDERED: IBUPROFEN 800 MG TABLET PO PRN (21:12)
--- NOTE | 2018-11-25 21:15 | PDOC CONSULTATION ---
Consultation-Blank Consultation: CARDIOLOGY CONSULTATION by Dr. Radha Vasquez on 11/25/2018. Patient seen at 9:30 AM on 11/25/2018. REASON FOR CONSULTATION: Patient with EKG changes intraoperatively and postoperatively. CONSULT REQUESTING PHYSICIAN: Dr. Borges: Surgicalist HISTORY OF PRESENT ILLNESS: Patient is a pleasant 38-year-old Afro-Fijian female who underwent hemorrhoidectomy today. As per discussion with Dr. Huerta this after the patient was intubated and after induction of anesthesia the patient had tachycardia with the highest rate being around 110. It was at this time that note it was noted that the patient's QRS widened. This continued postoperatively. The patient during the procedure and after the procedure has been hemodynamically stable. The patient denies any anginal symptoms. And hemodynamically she is stable. She denies any shortness of breath. Although she has a history of asthma. She states she has pain in her throat, due to the recent intubation. She also states her chest wall is heavy to take of breath and also there is tenderness in the chest wall this is reproducible. There is no palpitations. There is no arrhythmia seen on the monitor.. There is no symptoms of leg edema or PND. The patient denies any palpitations. She has a history of migraines, but no headaches at present. She does have a dry cough, but this could be due to the recent intubation and extubation. Past Medical History Cardiac Medical History: Reports: DVT, Hypertension - not on meds for years. She states that when she gets a migraine attack, or in stressful situations her blood pressure runs slightly high. She states she has not been advised to be on medication for blood pressure. Denies: Coronary Artery Disease, Myocardial Infarction, Pulmonary Embolism. Denies history of congenital heart disease. Pulmonary Medical History: Reports: Asthma - restrictive lung disease Denies: Bronchitis, Chronic Obstructive Pulmonary Disease (COPD), Pneumonia, Tuberculosis Neurological Medical History: Reports: Migraine Denies: Seizures GI Medical History: Reports: Gastroesophageal Reflux Disease. Denies history of GI bleed Denies: Crohn's Disease, Diverticulitis, Hepatitis, Hiatal Hernia, Ulcerative Colitis Musculoskeltal Medical History: Reports: Arthritis - RT SHOULDER,rt hand Psychiatric Medical History: Reports: Depression - post with 1st Hematology: Denies: Anemia, Sickle Cell Disease. GENITOURINARY: She has a past history of chronic kidney disease stage III. This is resolved. At present the patient's GFR is within normal limits. IMAGING SYSTEM ADMINISTRATOR: No history of seizures or TIA or CVA. She has a history of migraine. Past Surgical History Past Surgical History: Reports: Cholecystectomy, Orthopedic Surgery - right hand, Tubal Ligation Denies: Amputation, Hysterectomy, Mastectomy, Pacemaker Social History Information Source: Patient Lives with: Family Smoking Status: Former Smoker Frequency of Alcohol Use: Occasional Hx Recreational Drug Use: No Drugs: None Hx Prescription Drug Abuse: No - Advance Directive Resuscitation Status: Full Code. The patient's is her surrogate healthcare decision maker. Family History Family History: Reviewed & Not Pertinent there is a history of hypertension, but no history of coronary artery disease. Parental Family History Reviewed: No Children Family History Reviewed: Unknown Sibling(s) Family History Reviewed.: Unknown Medication/Allergy Home Medications: Albuterol Sulfate [Proair Hfa Inhalation Aerosol 8.5 gm Mdi] 200 puff IH ASDIR PRN 11/20/18 Budesonide/Formoterol Fumarate [Symbicort Hfa 160-4.5 Mcg Inhaler 6 gm] 1 puff IH Q12 11/20/18 Tiotropium Bradley [Spiriva Respimat] 4 gm IH ASDIR PRN 11/20/18 Ketorolac Tromethamine [Toradol 10 mg Tablet] 10 mg PO Q6HP PRN #20 tablet 11/25/18 Allergies/Adverse Reactions: acetaminophen [Acetaminophen] Allergy (Verified 04/17/17 12:21) hives, throat sore diphenhydramine HCl [From Benadryl] Allergy (Verified 04/17/17 12:21) hydrocodone [Hydrocodone] Allergy (Verified 04/17/17 12:21) Sulfa (Sulfonamide Antibiotics) Allergy (Verified 04/17/17 12:21) sumatriptan [From Imitrex] Allergy (Verified 04/17/17 12:21) sumatriptan succinate [From Imitrex] Allergy (Verified 04/17/17 12:21) BANDAIDS Allergy (Uncoded 08/28/14 18:45) Blisters Selected Entries PHYSICAL EXAMINATION: The patient is mildly obese. She is slightly groggy due to post anesthesia effect. But still able to give a history. She is oriented x3. She is well-groomed. She is not in any major distress. 11/25/18 11/25/18 11/25/18 06:08 08:44 08:49 Temperature 99.0 F Pulse Rate 105 H Respiratory 16 15 Rate Blood Pressure 146/77 H O2 Sat by Pulse 100 100 97 Oximetry Oxygen Delivery Room Air Method ( includes room air) 11/25/18 09:59 Temperature Pulse Rate 103 H Respiratory 19 Rate Blood Pressure 151/78 H O2 Sat by Pulse 99 Oximetry Oxygen Delivery Method ( includes room air) HEAD: Is atraumatic normocephalic. EYES: Pupils equal round regular reactive to light and accommodation. Extraocular movements are normal. There is no conjunctival pallor. There is no scleral icterus. EARS: Tympanic membranes are intact. External auditory canals are clear. NOSE: There is no deviated nasal septum. There is no inflammation of the nasal mucous membrane. MOUTH: Mucous members of mouth are moist. Tongue is moist. There is no ulcers. There is no bleeding from the gums. THROAT: There is no redness of the oropharynx. There is no exudates. SKIN: There is no skin rashes or skin lesions. There is no particular ecchymosis. NECK: Is supple. There is no JVD. Carotids are equal there is no bruits. There is no goiter. There is no accessory muscles of respiration in use. Trachea central. LUNGS: Is clear to auscultation percussion without any rhonchi rales or wheezing. There is chest wall tenderness reproducing the patient's symptoms on pressing on the left front of the chest. HEART: S1-S2 is heard. There is no S3 gallop. There is no S4 gallop. There is systolic murmur left sternal border and the apex there is no rub. ABDOMEN: Slightly obese. Nontender. There is no hepatospleno megaly. Bowel sounds are well heard. There is no tender areas masses. There is no rebound guarding or rigidity. EXTREMITIES: Femorals are deep femorals of well felt there is no femoral bruits leg pulses are well felt. There is no pedal edema. There is no DVT or cellulitis. There is no cyanosis or clubbing. Capillary refill is normal. IMAGING SYSTEM ADMINISTRATOR: The patient is slightly drowsy due to post anesthesia effect. But oriented x3 with no focal deficits. PSYCHIATRIC: In view of the patient's post anesthetic state intact psychiatric examination not done. But the patient does not appear to be agitated or anxious. Labs- All tests 24 hr 11/25/18 11/25/18 11/25/18 05:30 06:52 06:52 WBC 5.5 RBC 5.15 Hgb 13.6 Hct 42.0 MCV 82 MCH 26.4 L MCHC 32.3 RDW 15.1 H Plt Count 337 Sodium Potassium Chloride Carbon Dioxide Anion Gap BUN Creatinine Est GFR ( Amer) Est GFR (Non-Af Amer) Glucose Calcium Total Bilirubin Direct Bilirubin Neonat Total Bilirubin Neonat Direct Bilirubin Neonat Indirect Bili AST ALT Alkaline Phosphatase Creatine Kinase CK-MB (CK-2) Troponin I Total Protein Albumin Serum HCG, Qual NEGATIVE Urine HCG, Qual Cancelled 11/25/18 11/25/18 11/25/18 06:52 11:09 11:09 WBC RBC Hgb Hct MCV MCH MCHC RDW Plt Count Sodium 141.6 Potassium 3.7 Chloride 105 Carbon Dioxide 27 Anion Gap 10 BUN 8 Creatinine 0.71 Est GFR ( Amer) > 60 Est GFR (Non-Af Amer) > 60 Glucose 107 Calcium 9.5 Total Bilirubin 1.0 Direct Bilirubin 0.4 Neonat Total Bilirubin Not Reportable Neonat Direct Bilirubin Not Reportable Neonat Indirect Bili Not Reportable AST 19 ALT 27 Alkaline Phosphatase 76 Creatine Kinase 434 H CK-MB (CK-2) 0.66 Troponin I < 0.012 Total Protein 7.4 Albumin 4.0 Serum HCG, Qual Urine HCG, Qual 11/25/18 11/25/18 11/25/18 11:09 11:09 17:22 WBC 6.6 RBC 5.05 Hgb 13.6 Hct 41.2 MCV 82 MCH 26.9 L MCHC 32.9 RDW 14.8 H Plt Count 324 Sodium 143.0 Potassium 4.3 Chloride 105 Carbon Dioxide 24 Anion Gap 14 BUN 8 Creatinine 0.69 Est GFR ( Amer) > 60 Est GFR (Non-Af Amer) > 60 Glucose 129 H Calcium 9.3 Total Bilirubin 0.7 Direct Bilirubin 0.3 Neonat Total Bilirubin Not Reportable Neonat Direct Bilirubin Not Reportable Neonat Indirect Bili Not Reportable AST 28 ALT 24 Alkaline Phosphatase 78 Creatine Kinase 832 H CK-MB (CK-2) Troponin I Total Protein 7.7 Albumin 4.3 Serum HCG, Qual Urine HCG, Qual 11/25/18 17:22 WBC RBC Hgb Hct MCV MCH MCHC RDW Plt Count Sodium Potassium Chloride Carbon Dioxide Anion Gap BUN Creatinine Est GFR ( Amer) Est GFR (Non-Af Amer) Glucose Calcium Total Bilirubin Direct Bilirubin Neonat Total Bilirubin Neonat Direct Bilirubin Neonat Indirect Bili AST ALT Alkaline Phosphatase Creatine Kinase CK-MB (CK-2) 1.25 Troponin I < 0.012 Total Protein Albumin Serum HCG, Qual Urine HCG, Qual Chest X-Ray 11/25/18 00:00 IMPRESSION: NO ACUTE RADIOGRAPHIC FINDING IN THE CHEST. The patient's initial EKG done this morning shows sinus tachycardia with left bundle branch block pattern. With the patient having received 5 mg of Cardizem IV push x2 and subsequently Lopressor 2.5 mg IV push x1 the patient heart rate transiently came down below 80 and the monitor strip showed narrow complex rhythm, sinus in origin. Subsequent EKG shows sinus rhythm with no evidence of left bundle branch block pattern. There is left anterior fascicular block present. There is nonspecific minor T changes anterior leads. IMPRESSION/RECOMMENDATION: 1. Left bundle branch block pattern. This is rate related bundle branch block pattern. At present no need for any treatment. There is no evidence of acute coronary ischemia. 2. Labile hypertension: Patient needs outpatient monitoring of her blood pressure frequently to see if she needs antihypertensives. At present blood pressure is reasonable. 3. History of asthma: At present no evidence of acute exacerbation of asthma. 4. Chest wall pain, which is clearly noncardiac. Recommend analgesics. 5. Systolic murmur: Later would recommend that the patient have an outpatient echocardiogram to assess the murmur and also to see LV function and the presence or absence of LVH. 6. Past history of chronic kidney disease stage III. At present the patient's GFR is normal. Medications reviewed. Management plan discussed with the attending physician hospitalist provider on the case. EKG findings and rate related left bundle branch block pattern were discussed with the attending physician, and also the patient and patient's . Further work-up can be done as an outpatient. Would keep the patient in observation for 24 hours. Would closely observe the patient's blood pressure. As mentioned earlier would recommend the patient have an outpatient echocardiogram to assess the systolic murmur, and to look for presence or absence of LVH. Medical decision making is of moderate complexity. 60 minutes spent on this patient with more than 50% of the time spent in direct patient care. Note I was personally present at the patient's bedside when the Cardizem was given intravenously as a bolus x2 and also the IV metoprolol.
[2018-11-25] MEDS: FAMOTIDINE 20 MG TABLET PO SCH (21:40)
[2018-11-26 00:26] LABS: TROPONIN I < 0.012 ng/mL
--- NOTE | 2018-11-26 06:32 | EKG REPORT ---
SEVERITY:- ABNORMAL ECG - SINUS RHYTHM NONSPECIFIC T ABNORMALITIES, ANT-LAT LEADS MIN INCREASE FROM 11/25/18 EKG CLINICAL CORRELATION NEEDED. : Confirmed by: Luigi Boyce MD 26-Nov-2018 06:31:56
[2018-11-26 06:33] LABS: HEMATOCRIT 37.8 % (36.0-47.0); HEMOGLOBIN 12.3 g/dL (12.0-15.5); MEAN CORPUSCULAR HEMOGLOBIN 26.6 pg (27.0-33.4); MEAN CORPUSCULAR HGB CONC 32.7 g/dL (32.0-36.0); MEAN CORPUSCULAR VOLUME 81 fl (80-97); PLATELET COUNT 326 10^3/uL (150-450); RED BLOOD COUNT 4.64 10^6/uL (3.72-5.28); WHITE BLOOD COUNT 9.2 10^3/uL (4.0-10.5)
[2018-11-26] MEDS: MORPHINE SULFATE 10 MG/ML INJ IV PRN ×2 (06:48→09:25)
[2018-11-26 06:56] LABS: ALANINE AMINOTRANSFERASE 21 U/L (9-52); ALBUMIN 3.6 g/dL (3.5-5.0); ALKALINE PHOSPHATASE 69 U/L (38-126); ANION GAP 10 (5-19); ASPARTATE AMINO TRANSFERASE 23 U/L (14-36); BILIRUBIN,DIRECT 0.3 mg/dL (0.0-0.4); BILIRUBIN,TOTAL 0.7 mg/dL (0.2-1.3); BLOOD UREA NITROGEN 9 mg/dL (7-20); CALCIUM 9.2 mg/dL (8.4-10.2); CARBON DIOXIDE 24 mmol/L (22-30); CHLORIDE 108 mmol/L (98-107); CHOLESTEROL 117.14 mg/dL (0-200); GLUCOSE 99 mg/dL (75-110); PHOSPHORUS 3.1 mg/dL (2.5-4.5); POTASSIUM 4.2 mmol/L (3.6-5.0); SODIUM 141.7 mmol/L (137-145); TOTAL PROTEIN 6.7 g/dL (6.3-8.2); TRIGLYCERIDES 50 mg/dL (<150)
[2018-11-26 07:06] LABS: DIRECT LDL 76 mg/dL (<100)
--- NOTE | 2018-11-26 08:41 | PDOC PROGRESS REPORT ---
Subjective Progress Note for:: 11/26/18 Subjective:: Patient complains of chest pain, operative site pain. Overnight she had no hemodynamic or cardiovascular issues. All laboratory profile within normal limits. Cardiac evaluation consistent with rate related intraventricular conduction delay Reason For Visit: TACHYCARDIA Physical Exam Vital Signs: Temp Pulse Resp BP Pulse Ox 98.5 F 60 18 130/79 H 100 11/26/18 03:01 11/26/18 03:01 11/26/18 03:01 11/26/18 03:01 11/26/18 03:01 Intake & Output 11/25/18 11/26/18 11/27/18 06:59 06:59 06:59 Intake Total 0 1819 Output Total 340 Balance 0 1479 Weight 85.73 kg 85.1 kg General appearance: PRESENT: mild distress GI/Abdominal exam: PRESENT: other - Patient rolled in left lateral cubitus position. Gelfoam packing removed; patient released some gas. Anal verge closures looked good Results Laboratory Results: 11/26/18 06:25 11/26/18 06:25 11/25/18 11/25/18 11/25/18 06:52 06:52 11:09 WBC 5.5 RBC 5.15 Hgb 13.6 Hct 42.0 MCV 82 MCH 26.4 L MCHC 32.3 RDW 15.1 H Plt Count 337 Sodium 141.6 143.0 Potassium 3.7 4.3 Chloride 105 105 Carbon Dioxide 27 24 Anion Gap 10 14 BUN 8 8 Creatinine 0.71 0.69 Est GFR ( Amer) > 60 > 60 Est GFR (Non-Af Amer) > 60 > 60 Glucose 107 129 H Calcium 9.5 9.3 Phosphorus Magnesium Total Bilirubin 1.0 0.7 AST 19 28 ALT 27 24 Alkaline Phosphatase 76 78 Total Protein 7.4 7.7 Albumin 4.0 4.3 Triglycerides Cholesterol LDL Cholesterol Direct VLDL Cholesterol HDL Cholesterol TSH 11/25/18 11/26/18 11/26/18 11:09 06:25 06:25 WBC 6.6 9.2 RBC 5.05 4.64 Hgb 13.6 12.3 Hct 41.2 37.8 MCV 82 81 MCH 26.9 L 26.6 L MCHC 32.9 32.7 RDW 14.8 H 15.0 H Plt Count 324 326 Sodium 141.7 Potassium 4.2 Chloride 108 H Carbon Dioxide 24 Anion Gap 10 BUN 9 Creatinine 0.72 Est GFR ( Amer) > 60 Est GFR (Non-Af Amer) > 60 Glucose 99 Calcium 9.2 Phosphorus 3.1 Magnesium 2.0 Total Bilirubin 0.7 AST 23 ALT 21 Alkaline Phosphatase 69 Total Protein 6.7 Albumin 3.6 Triglycerides 50 Cholesterol 117.14 LDL Cholesterol Direct 76 VLDL Cholesterol 10.0 HDL Cholesterol 31 L TSH 11/26/18 06:25 WBC RBC Hgb Hct MCV MCH MCHC RDW Plt Count Sodium Potassium Chloride Carbon Dioxide Anion Gap BUN Creatinine Est GFR ( Amer) Est GFR (Non-Af Amer) Glucose Calcium Phosphorus Magnesium Total Bilirubin AST ALT Alkaline Phosphatase Total Protein Albumin Triglycerides Cholesterol LDL Cholesterol Direct VLDL Cholesterol HDL Cholesterol TSH 0.87 11/25/18 11/25/18 11/25/18 11:09 11:09 17:22 Creatine Kinase 434 H 832 H CK-MB (CK-2) 0.66 Troponin I < 0.012 NT-Pro-B Natriuret Pep 11/25/18 11/25/18 11/25/18 17:22 23:43 23:43 Creatine Kinase 1094 H CK-MB (CK-2) 1.25 1.40 Troponin I < 0.012 < 0.012 NT-Pro-B Natriuret Pep 11/26/18 06:25 Creatine Kinase CK-MB (CK-2) Troponin I NT-Pro-B Natriuret Pep 64 Impressions: Chest X-Ray 11/25/18 00:00 IMPRESSION: NO ACUTE RADIOGRAPHIC FINDING IN THE CHEST. Assessment & Plan - Diagnosis (1) Status post hemorrhoidectomy Is this a current diagnosis for this admission?: Yes Plan: Impression: Patient doing well from a postoperative standpoint. Pain management may be a challenge. Her admission for cardiac monitoring with no acute pathology other than rate induced intraventricular conduction delay Recommendations: 1. Patient to be discharged home from a surgical standpoint; follow-up with Dr. Borges at [facility] in 1 to 2 weeks; may use sitz bath's. Encour aged patient to stay off solid food for several more days. Prescription for Toradol on chart. 2. Patient should be assigned to follow-up with fork truck driver for echocardiogram as recommended by 3. The above management plan discussed with hospitalist service
[2018-11-26] MEDS: FAMOTIDINE 20 MG TABLET PO SCH ×2 (09:27→22:20)
[2018-11-26] MEDS: AMLODIPINE BESYLATE 10 MG TABLET PO SCH (09:27)
[2018-11-26] MEDS ORDERED: ENOXAPARIN SODIUM INJ 30 MG/0.3 ML DISP.SYRIN SUBCUT SCH (10:00)
[2018-11-26] MEDS: SENNOSIDES/DOCUSATE 8.6-50 MG 1 EACH TABLET PO SCH ×2 (10:24→18:34)
[2018-11-26] MEDS: KETOROLAC TROMETHAMINE 10 MG TABLET PO PRN ×2 (10:24→22:32)
[2018-11-26] MEDS: MAGNESIUM HYDROXIDE SUSP 30 ML UDCUP PO PRN (10:24)
[2018-11-26] MEDS: POLYETHYLENE GLYCOL 3350 POWDER 17 GM/1 PACKET PO SCH (10:24)
--- NOTE | 2018-11-26 13:21 | PDOC PROGRESS REPORT ---
Subjective Progress Note for:: 11/26/18 Subjective:: ANA MARIA PEREZ is a 38 year old female with a PMH of pre-HTN. [facility]. According to Dr. Borges, the patient became tachycardic upon induction, was treated with IV cardizem and lopresspor. She was [facility] for telemetry monitoring. The patient was seen this morning on rounds, she is resting in bed on room air. The patient looks uncomfortable, she is shifting in bed, grimacing in pain. The patient states "this is the worst pain of my life - worse than childbirth." Abdomen is mildly distended and TTP. Plan to keep patient in the hospital for 24 hours for intractable pain. Reason For Visit: TACHYCARDIA Physical Exam Vital Signs: Temp Pulse Resp BP Pulse Ox 98.1 F 69 18 145/89 H 100 11/26/18 08:19 11/26/18 08:19 11/26/18 08:19 11/26/18 08:19 11/26/18 08:19 Intake & Output 11/25/18 11/26/18 11/27/18 06:59 06:59 06:59 Intake Total 0 1819 681 Output Total 340 Balance 0 1479 681 Weight 85.73 kg 85.1 kg General appearance: PRESENT: no acute distress, well-developed, well-nourished Head exam: PRESENT: atraumatic, normocephalic Eye exam: PRESENT: conjunctiva pink, EOMI, PERRLA. ABSENT: scleral icterus Ear exam: PRESENT: normal external ear exam Mouth exam: PRESENT: moist, tongue midline Neck exam: PRESENT: full ROM. ABSENT: carotid bruit, JVD, lymphadenopathy, thyromegaly Respiratory exam: PRESENT: clear to auscultation maggie, symmetrical, unlabored. ABSENT: rales, rhonchi, wheezes Cardiovascular exam: PRESENT: RRR. ABSENT: diastolic murmur, rubs, systolic murmur Pulses: PRESENT: normal radial pulses, normal dorsalis pedis pul Vascular exam: PRESENT: normal capillary refill GI/Abdominal exam: PRESENT: normal bowel sounds, soft. ABSENT: distended, guarding, mass, organolmegaly, rebound, tenderness Rectal exam: PRESENT: deferred Extremities exam: PRESENT: full ROM. ABSENT: calf tenderness, clubbing, pedal edema Musculoskeletal exam: PRESENT: full ROM Neurological exam: PRESENT: alert, awake, oriented to person, oriented to place, oriented to time, oriented to situation Psychiatric exam: PRESENT: appropriate affect, normal mood Skin exam: PRESENT: dry, intact, warm. ABSENT: cyanosis, rash Results Laboratory Results: 11/26/18 06:25 11/26/18 06:25 11/25/18 11/25/18 11/25/18 06:52 06:52 11:09 WBC 5.5 RBC 5.15 Hgb 13.6 Hct 42.0 MCV 82 MCH 26.4 L MCHC 32.3 RDW 15.1 H Plt Count 337 Sodium 141.6 143.0 Potassium 3.7 4.3 Chloride 105 105 Carbon Dioxide 27 24 Anion Gap 10 14 BUN 8 8 Creatinine 0.71 0.69 Est GFR ( Amer) > 60 > 60 Est GFR (Non-Af Amer) > 60 > 60 Glucose 107 129 H Calcium 9.5 9.3 Phosphorus Magnesium Total Bilirubin 1.0 0.7 AST 19 28 ALT 27 24 Alkaline Phosphatase 76 78 Total Protein 7.4 7.7 Albumin 4.0 4.3 Triglycerides Cholesterol LDL Cholesterol Direct VLDL Cholesterol HDL Cholesterol TSH 11/25/18 11/26/18 11/26/18 11:09 06:25 06:25 WBC 6.6 9.2 RBC 5.05 4.64 Hgb 13.6 12.3 Hct 41.2 37.8 MCV 82 81 MCH 26.9 L 26.6 L MCHC 32.9 32.7 RDW 14.8 H 15.0 H Plt Count 324 326 Sodium 141.7 Potassium 4.2 Chloride 108 H Carbon Dioxide 24 Anion Gap 10 BUN 9 Creatinine 0.72 Est GFR ( Amer) > 60 Est GFR (Non-Af Amer) > 60 Glucose 99 Calcium 9.2 Phosphorus 3.1 Magnesium 2.0 Total Bilirubin 0.7 AST 23 ALT 21 Alkaline Phosphatase 69 Total Protein 6.7 Albumin 3.6 Triglycerides 50 Cholesterol 117.14 LDL Cholesterol Direct 76 VLDL Cholesterol 10.0 HDL Cholesterol 31 L TSH 11/26/18 06:25 WBC RBC Hgb Hct MCV MCH MCHC RDW Plt Count Sodium Potassium Chloride Carbon Dioxide Anion Gap BUN Creatinine Est GFR ( Amer) Est GFR (Non-Af Amer) Glucose Calcium Phosphorus Magnesium Total Bilirubin AST ALT Alkaline Phosphatase Total Protein Albumin Triglycerides Cholesterol LDL Cholesterol Direct VLDL Cholesterol HDL Cholesterol TSH 0.87 11/25/18 11/25/18 11/25/18 11:09 11:09 17:22 Creatine Kinase 434 H 832 H CK-MB (CK-2) 0.66 Troponin I < 0.012 NT-Pro-B Natriuret Pep 11/25/18 11/25/18 11/25/18 17:22 23:43 23:43 Creatine Kinase 1094 H CK-MB (CK-2) 1.25 1.40 Troponin I < 0.012 < 0.012 NT-Pro-B Natriuret Pep 11/26/18 06:25 Creatine Kinase CK-MB (CK-2) Troponin I NT-Pro-B Natriuret Pep 64 Impressions: Chest X-Ray 11/25/18 00:00 IMPRESSION: NO ACUTE RADIOGRAPHIC FINDING IN THE CHEST. Status: Imported from PACS Assessment and Plan - Diagnosis (1) Tachycardia Is this a current diagnosis for this admission?: Yes Plan: Sinus tachycardia noted on EKG today during routine hemorrhoidectomy EKG shows S tachycardia without evidence of infarction Treated with IV Lopressor and Cardizem HR now controlled, rhythm returned to NSR Admit to med/telemetry for observation (2) HTN (hypertension) Qualifiers: Hypertension type: essential hypertension Qualified Code(s): I10 - Essential (primary) hypertension Is this a current diagnosis for this admission?: Yes Plan: PMH pre-HTN Moderate BP control today (SBP 135-145) Amlodipine daily IV hydralazine PRN SBP>170 IV Lopressor as needed SBP>170 or HR>120 (3) Hemorrhoids Qualifiers: Hemorrhoid type: unspecified Qualified Code(s): K64.9 - Unspecified hemorrhoids Is this a current diagnosis for this admission?: Yes Plan: s/p hemorrhoidectomy Patient complains of a great deal of pain "worse than childbirth" PRN Tylenol PO, PRN toradol IV and tramadol for pain Ice pack to affected site for relief Bowel regimen - senna BID, scheduled Miralax, PRN milk of magnesia - Time Time Spent with patient: 15-24 minutes Medications reviewed and adjusted accordingly: Yes Anticipated discharge: Home Within: within 24 hours - Inpatient Certification Based on my medical assessment, after consideration of the patient's comorbidities, presenting symptoms, or acuity I expect that the services needed warrant INPATIENT care.: Yes I certify that my determination is in accordance with my understanding of Medicare's requirements for reasonable and necessary INPATIENT services [42 CFR 412.3e].: Yes Medical Necessity: Need For Continuous Telemetry Monitoring, Need for Pain Control, Risk of Complication if Not Cared For in Hospital - Plan Summary Plan Summary: PAIN CONTROL. BOWEL REGIMEN.
[2018-11-26] MEDS ORDERED: MORPHINE SULFATE 10 MG/ML INJ IV PRN ×3 (14:37→14:38)
[2018-11-26] MEDS ORDERED: ONDANSETRON 4 MG TAB.RAPDIS PO PRN (15:00)
[2018-11-26] MEDS ORDERED: (PENDING PHARMACY ID) (Budesonide/Formoterol Fumarate 1 PUFF) IH SCH (15:30)
[2018-11-26] MEDS: FLUTICASONE/VILANTEROL 200-25 MCG/DOSE IH SCH (18:39)
[2018-11-26] MEDS: RINGERS SOLUTION,LACTATED 1,000 ML IV PRN (22:20)
--- NOTE | 2018-11-27 00:11 | Progress Note ---
Provider Note Provider Note: CARDIOLOGY PROGRESS NOTE FOR 11/26/2018
[2018-11-27] MEDS: KETOROLAC TROMETHAMINE 10 MG TABLET PO PRN ×2 (08:50→14:44)
[2018-11-27] MEDS ORDERED: LIDOCAINE 2% URO-JET 5 ML KIT TOP ONE (09:15)
[2018-11-27] MEDS: MAGNESIUM HYDROXIDE SUSP 30 ML UDCUP PO PRN (10:57)
[2018-11-27] MEDS: FLUTICASONE/VILANTEROL 200-25 MCG/DOSE IH SCH (10:57)
[2018-11-27] MEDS: SENNOSIDES/DOCUSATE 8.6-50 MG 1 EACH TABLET PO SCH ×2 (10:57→18:05)
[2018-11-27] MEDS: POLYETHYLENE GLYCOL 3350 POWDER 17 GM/1 PACKET PO SCH (10:57)
[2018-11-27] MEDS: TIOTROPIUM BROMIDE DPI 5 CAP/KIT (18 MCG/CAP) IH SCH (10:58)
[2018-11-27] MEDS: FAMOTIDINE 20 MG TABLET PO SCH ×2 (10:58→23:43)
[2018-11-27] MEDS: ENOXAPARIN SODIUM INJ 40 MG/0.4 ML DISP.SYRIN SUBCUT SCH (10:58)
[2018-11-27] MEDS: AMLODIPINE BESYLATE 10 MG TABLET PO SCH (10:58)
[2018-11-27] MEDS ORDERED: MAGNESIUM CITRATE 296 ML BOTTLE PO ONE (16:00)
--- NOTE | 2018-11-27 16:07 | PDOC PROGRESS REPORT ---
Subjective Progress Note for:: 11/27/18 Subjective:: ANA MARIA PEREZ is a 38 year old female with a PMH of pre-HTN. She presented to [facility] for a hemorrhoidectomy. According to Dr. Borges, the patient became tachycardic upon induction, was treated with IV cardizem and lopresspor. She was admitted to [facility] for telemetry monitoring. The patient was seen this morning on rounds, she is resting in bed on room air. The patient states she is still in pain. Abdomen is mildly distended and TTP. She still has not had a bowel movement. Initiate Nubain IV for pain control as well as topical lidocaine jelly. Added Magnesium Citrate to bowel regimen. Patient states she does not feel ready to go home. Plan to keep patient in the hospital for 24 hours for intractable pain. Reason For Visit: TACHYCARDIA Physical Exam Vital Signs: Temp Pulse Resp BP Pulse Ox 97.9 F 74 16 135/80 H 99 11/27/18 11:56 11/27/18 11:56 11/27/18 11:56 11/27/18 11:56 11/27/18 11:56 Intake & Output 11/26/18 11/27/18 11/28/18 06:59 06:59 06:59 Intake Total 1819 2560 1000 Output Total 340 800 Balance 1479 1760 1000 Weight 85.1 kg 86 kg General appearance: PRESENT: no acute distress, well-developed, well-nourished Head exam: PRESENT: atraumatic, normocephalic Eye exam: PRESENT: conjunctiva pink, EOMI, PERRLA. ABSENT: scleral icterus Ear exam: PRESENT: normal external ear exam Mouth exam: PRESENT: moist, tongue midline Neck exam: ABSENT: carotid bruit, JVD, lymphadenopathy, thyromegaly Respiratory exam: PRESENT: clear to auscultation maggie. ABSENT: rales, rhonchi, wheezes Cardiovascular exam: PRESENT: RRR. ABSENT: diastolic murmur, rubs, systolic murmur Pulses: PRESENT: normal dorsalis pedis pul Vascular exam: PRESENT: normal capillary refill GI/Abdominal exam: PRESENT: normal bowel sounds, soft. ABSENT: distended, guar ding, mass, organolmegaly, rebound, tenderness Rectal exam: PRESENT: deferred Extremities exam: PRESENT: full ROM. ABSENT: calf tenderness, clubbing, pedal edema Neurological exam: PRESENT: alert, awake, oriented to person, oriented to place, oriented to time, oriented to situation Psychiatric exam: PRESENT: appropriate affect, normal mood Skin exam: PRESENT: dry, intact, warm. ABSENT: cyanosis, rash Results Laboratory Results: 11/26/18 06:25 11/26/18 06:25 11/25/18 11/25/18 11/25/18 11:09 11:09 17:22 Creatine Kinase 434 H 832 H CK-MB (CK-2) 0.66 Troponin I < 0.012 NT-Pro-B Natriuret Pep 11/25/18 11/25/18 11/25/18 17:22 23:43 23:43 Creatine Kinase 1094 H CK-MB (CK-2) 1.25 1.40 Troponin I < 0.012 < 0.012 NT-Pro-B Natriuret Pep 11/26/18 06:25 Creatine Kinase CK-MB (CK-2) Troponin I NT-Pro-B Natriuret Pep 64 Impressions: Chest X-Ray 11/25/18 00:00 IMPRESSION: NO ACUTE RADIOGRAPHIC FINDING IN THE CHEST. Status: Imported from PACS Assessment and Plan - Diagnosis (1) Tachycardia Is this a current diagnosis for this admission?: Yes Plan: Sinus tachycardia noted on EKG today during routine hemorrhoidectomy EKG shows S tachycardia without evidence of infarction Treated with IV Lopressor and Cardizem HR now controlled, rhythm returned to NSR Admit to med/telemetry for observation (2) HTN (hypertension) Qualifiers: Hypertension type: essential hypertension Qualified Code(s): I10 - Essential (primary) hypertension Is this a current diagnosis for this admission?: Yes Plan: PMH pre-HTN Moderate BP control today (SBP 135) Amlodipine daily IV hydralazine PRN SBP>170 IV Lopressor as needed SBP>170 or HR>120 (3) Hemorrhoids Qualifiers: Hemorrhoid type: unspecified Qualified Code(s): K64.9 - Unspecified hemorrhoids Is this a current diagnosis for this admission?: Yes Plan: s/p hemorrhoidectomy Patient complains of a great deal of pain at surgical site PRN Tylenol PO, PRN toradol IV and tramadol for pain Ice pack to affected site for relief Bowel regimen - senna BID, scheduled Miralax, PRN milk of magnesia (4) Constipated Is this a current diagnosis for this admission?: Yes Plan: Last BM was preop Continue scheduled senna, MiraLAX PRN milk of magnesia Initiate magnesium citrate x1 today Patient has been told multiple times that her first bowel movement postoperatively will likely be painful. The patient has expressed hesitation regarding her first bowel movement. I have advanced her bowel regimen in order to soften the stool and minimize her pain. - Time Time Spent with patient: 15-24 minutes Medications reviewed and adjusted accordingly: Yes Anticipated discharge: Home Within: within 24 hours - Inpatient Certification Based on my medical assessment, after consideration of the patient's com orbidities, presenting symptoms, or acuity I expect that the services needed warrant INPATIENT care.: Yes I certify that my determination is in accordance with my understanding of Medicare's requirements for reasonable and necessary INPATIENT services [42 CFR 412.3e].: Yes Medical Necessity: Need for Pain Control, Risk of Complication if Not Cared For in Hospital
[2018-11-27] MEDS: RINGERS SOLUTION,LACTATED 1,000 ML IV PRN (18:13)
[2018-11-27] MEDS: NALBUPHINE HCL INJ 10 MG/1 ML AMPULE INJ PRN (20:31)
[2018-11-28] MEDS: NALBUPHINE HCL INJ 10 MG/1 ML AMPULE INJ PRN ×3 (00:38→10:05)
[2018-11-28] MEDS: ENOXAPARIN SODIUM INJ 40 MG/0.4 ML DISP.SYRIN SUBCUT SCH (09:59)
[2018-11-28] MEDS: SENNOSIDES/DOCUSATE 8.6-50 MG 1 EACH TABLET PO SCH (10:04)
[2018-11-28] MEDS: POLYETHYLENE GLYCOL 3350 POWDER 17 GM/1 PACKET PO SCH (10:05)
[2018-11-28] MEDS: AMLODIPINE BESYLATE 10 MG TABLET PO SCH (10:05)
[2018-11-28] MEDS: TIOTROPIUM BROMIDE DPI 5 CAP/KIT (18 MCG/CAP) IH SCH (10:05)
[2018-11-28] MEDS: FAMOTIDINE 20 MG TABLET PO SCH (10:05)
[2018-11-28] MEDS: FLUTICASONE/VILANTEROL 200-25 MCG/DOSE IH SCH (10:06)
[2018-11-28 12:58] VITALS: BP 132/82
--- NOTE | 2018-12-03 10:38 | PDOC DISCHARGE SUMMARY ---
General - Admit/Disc Date/PCP Admission Date/Primary Care Provider: 11/25/18 13:51 YAW CORDON MD Discharge Date: 11/28/18 - Discharge Diagnosis (1) Tachycardia Is this a current diagnosis for this admission?: Yes (2) HTN (hypertension) Is this a current diagnosis for this admission?: Yes (3) Hemorrhoids Is this a current diagnosis for this admission?: Yes (4) Constipated Is this a current diagnosis for this admission?: Yes - Additional Information Resuscitation Status: Full Code Discharge Diet: As Tolerated Discharge Activity: Balance Activity w/Rest, No Lifting Over 10 Pounds, No Lifting/Push/Pulling, Walk Frequently Prescriptions: Amlodipine Besylate [Norvasc 10 mg Tablet] 10 mg PO DAILY #30 tablet Ketorolac Tromethamine [Toradol 10 mg Tablet] 10 mg PO Q6HP PRN #20 tablet PRN Reason: Polyethylene Glycol 3350 [Miralax Powder 17 gm/Packet] 17 gm PO DAILY #14 powd.pack Sennosides/Docusate 8.6-50 mg [Senna Plus Tablet] 2 each PO BID #120 tablet Home Medications: Albuterol Sulfate [Proair HFA Inhalation Aerosol 8.5 gm MDI] 200 puff IH ASDIR PRN 11/20/18 Budesonide/Formoterol Fumarate [Symbicort HFA 160-4.5 mcg Inhaler 6 gm] 1 puff IH Q12 11/20/18 Tiotropium [place] [Spiriva Respimat] 4 gm IH ASDIR PRN 11/20/18 Ketorolac Tromethamine [Toradol 10 mg Tablet] 10 mg PO Q6HP PRN #20 tablet 11/25/18 Amlodipine Besylate [Norvasc 10 mg Tablet] 10 mg PO DAILY #30 tablet 11/28/18 Polyethylene Glycol 3350 [Miralax Powder 17 gm/Packet] 17 gm PO DAILY #14 powd.pack 11/28/18 Sennosides/Docusate 8.6-50 mg [Senna Plus Tablet] 2 each PO BID #120 tablet 11/28/18 History of Present Illness History of Present Illness: ANA MARIA PEREZ is a 38 year old female with a PMH of pre-HTN. [facility]. According to Dr. Borges, the patient became tachy cardic upon induction. Her heart rate increased to 120s, EKG showed new LBBB. Dr. Velazquez, cardiology, was notified. He recommended administering Lopressor and Cardizem IV. Patient's HR slowed to 90s, she returned to NSR. Plan to admit the patient to [facility] for observation of her tachycardia. Upon evaluation in the PACU, the patient is awake, oriented and slightly drowsy s/p anesthesia. She is oriented to time, place and person. Patient denies chest pain or shortness of breath at this time. However, according to the COMPENSATOR the patient had previously been complaining of chest pressure. Lungs are clear to auscultation. S1-S2. Pulses are palpable in the upper and lower extremities. No evidence of peripheral edema. Hospital Course Hospital Course: ANA MARIA PEREZ is a 38 year old female with a PMH of pre-HTN. [facility]. According to Dr. Borges, the patient became tachycardic upon induction. Sinus tachycardia noted on EKG today during routine hemorrhoidectomy, she was treated with IV cardizem and lopresspor. She was admitted to [facility] for telemetry monitoring. Post-op her HR was controlled, rhythm returned to NSR. She was noted to be hypertensive. The patient reported a history of pre-HTN. She was started on amlodipine and adequeate BP control was acheived. The patient remained at [facility] for 3 days due to intractable pain. She stated that the surgical site pain was "worse than childbirth." Since narcotics were avoided, due to their propensity to cause constipation, the patient was initially treated with tylenol, toradol. Pain control was achieved with IV Nubain. Patient has been told multiple times that her first bowel movement postoperatively will likely be painful. The patient has expressed hesitation regarding her first bowel movement. Her bowel regimen was maximized in order to soften the stool and minimize her pain. She received BID senna, MiraLax, milk of magnesia and magnesium citrate. On hospital day #3 the patient finally had a bowel movement and stated her pain was greatly reduced. She was discharged home with prescriptions for amlodipine and all components of her bowel regimen. She was instructed to follow up with surgery in 1-2 weeks. Physical Exam Vital Signs: Temp Pulse Resp BP Pulse Ox 98.1 F 67 16 132/82 H 100 11/28/18 12:57 11/28/18 12:57 11/28/18 12:57 11/28/18 12:57 11/28/18 12:57 General appearance: PRESENT: no acute distress, obese Head exam: PRESENT: atraumatic, normocephalic Eye exam: PRESENT: conjunctiva pink, EOMI, PERRLA. ABSENT: scleral icterus Ear exam: PRESENT: normal external ear exam Mouth exam: PRESENT: moist, tongue midline Neck exam: ABSENT: carotid bruit, JVD, lymphadenopathy, thyromegaly Respiratory exam: PRESENT: clear to auscultation maggie. ABSENT: rales, rhonchi, wheezes Cardiovascular exam: PRESENT: RRR. ABSENT: diastolic murmur, rubs, systolic murmur Pulses: PRESENT: normal dorsalis pedis pul Vascular exam: PRESENT: normal capillary refill GI/Abdominal exam: PRESENT: normal bowel sounds, soft. ABSENT: distended, guarding, mass, organolmegaly, rebound, tenderness Rectal exam: PRESENT: deferred Extremities exam: PRESENT: full ROM. ABSENT: calf tenderness, clubbing, pedal edema Neurological exam: PRESENT: alert, awake, oriented to person, oriented to place, oriented to time, oriented to situation, CN II-XII grossly intact. ABSENT: motor sensory deficit Psychiatric exam: PRESENT: appropriate affect, normal mood. ABSENT: homicidal ideation, suicidal ideation Skin exam: PRESENT: dry, intact, warm. ABSENT: cyanosis, rash Results Laboratory Results: 11/26/18 06:25 11/26/18 06:25 11/25/18 11/25/18 11/25/18 11:09 11:09 17:22 Creatine Kinase 434 H 832 H CK-MB (CK-2) 0.66 Troponin I < 0.012 NT-Pro-B Natriuret Pep 11/25/18 11/25/18 11/25/18 17:22 23:43 23:43 Creatine Kinase 1094 H CK-MB (CK-2) 1.25 1.40 Troponin I < 0.012 < 0.012 NT-Pro-B Natriuret Pep 11/26/18 06:25 Creatine Kinase CK-MB (CK-2) Troponin I NT-Pro-B Natriuret Pep 64 Impressions: Chest X-Ray 11/25/18 00:00 IMPRESSION: NO ACUTE RADIOGRAPHIC FINDING IN THE CHEST. Status: Imported from PACS Qualifiers - * PATIENT BEING DISCHARGED WITH ANY OF THE FOLLOWING DIAGNOSIS: No Acute Heart Failure Is this a Heart Failure Patient?: No
== END 2018-11-28 13:40 | disposition home or self-care (01) ==
LOC: OROUT 05:29 → 5 12:27 → OROUT 13:47 → 3N 13:51
PROVIDERS: ADMIT Surgery; ATTEND Surgery
PROC: 06BY0ZC Excision of Hemorrhoidal Plexus, Open Approach (ICD-10-PCS; principal; 2018-11-25 07:30)
DX: K64.8 Other hemorrhoids (principal); K64.5 Perianal venous thrombosis; K64.4 Residual hemorrhoidal skin tags; T88.59XA Other complications of anesthesia, initial encounter; T41.205A Adverse effect of unspecified general anesthetics, initial encounter; R00.0 Tachycardia, unspecified; Y84.8 Other medical procedures as the cause of abnormal reaction of the patient, or of later complication, without mention of misadventure at the time of the procedure; Y92.238 Other place in hospital as the place of occurrence of the external cause; G89.18 Other acute postprocedural pain; I10 Essential (primary) hypertension; K59.00 Constipation, unspecified; I44.7 Left bundle-branch block, unspecified; R07.89 Other chest pain; E66.9 Obesity, unspecified; R05 Cough; I12.9 Hypertensive chronic kidney disease with stage 1 through stage 4 chronic kidney disease, or unspecified chronic kidney disease; N18.9 Chronic kidney disease, unspecified; J45.909 Unspecified asthma, uncomplicated; R01.1 Cardiac murmur, unspecified; Z86.718 Personal history of other venous thrombosis and embolism; Z87.891 Personal history of nicotine dependence; Z90.49 Acquired absence of other specified parts of digestive tract; Z79.899 Other long term (current) drug therapy; Z98.890 Other specified postprocedural states; Z90.710 Acquired absence of both cervix and uterus; Z90.721 Acquired absence of ovaries, unilateral; Z90.79 Acquired absence of other genital organ(s)
CPT/HCPCS: 46260; 36415 ×3; 82553; 82550; 83735; 84100; 84443; 84703; 85027 ×3; 80076; 80048; 80053; 84484; 80061; 83880; 88304 ×2; 71045; 93005 ×2; 93010 ×2; G0378 ×4; J2250; J3490 ×23; J1100; J3010; J2270; J2300 ×2; J1170; J2550; J0330; J2405; J7120 ×3; J2704; C9290; 902

== ENCOUNTER 2018-12-03 20:29 | Emergency (ER) | payer MEDICAID ==
[2018-12-03] MEDS ORDERED: ASPIRIN 81 MG TABLET, CHEWABLE PO ONE (20:45)
--- NOTE | 2018-12-03 21:51 | RADIOLOGY REPORT (SQ) ---
EXAM DESCRIPTION: XR CHEST 1 VIEW COMPLETED DATE/TME: 12/03/2018 20:45 CLINICAL HISTORY: 38 years, Female, cp COMPARISON: Multiple priors, most recent from 11/25/2018 NUMBER OF VIEWS: One TECHNIQUE: Single frontal view of the chest was obtained LIMITATIONS: None. FINDINGS: Cardiac and mediastinal contours are normal in appearance. Lungs are clear. No pleural effusion or pneumothorax. IMPRESSION: No acute disease. copyright 2010 [email or web address]- All Rights Reserved
[2018-12-03 21:54] LABS: ABSOLUTE BASOPHILS # (AUTO) 0.1 10^3/uL (0.0-0.2); ABSOLUTE EOSINOPHILS # (AUTO) 0.1 10^3/uL (0.0-0.6); ABSOLUTE LYMPHOCYTES (AUTO) 2.7 10^3/uL (0.5-4.7); ABSOLUTE MONOCYTES (AUTO) 0.5 10^3/uL (0.1-1.4); ABSOLUTE NEUT (AUTO) 3.5 10^3/uL (1.7-8.2); BASOPHILS % (AUTO) 1.4 % (0-2); HEMOGLOBIN 13.4 g/dL (12.0-15.5); LYMPHOCYTES % (AUTO) 38.9 % (13-45); MEAN CORPUSCULAR HEMOGLOBIN 26.9 pg (27.0-33.4); MEAN CORPUSCULAR HGB CONC 32.7 g/dL (32.0-36.0); MEAN CORPUSCULAR VOLUME 82 fl (80-97); MONOCYTES % (AUTO) 7.5 % (3-13); PLATELET COUNT 386 10^3/uL (150-450); RED BLOOD COUNT 4.97 10^6/uL (3.72-5.28); RED CELL DISTRIBUTION WIDTH 14.9 % (11.5-14.0); SEGMENTED NEUTROPHILS % (AUTO) 50.2 % (42-78); TOTAL CELLS COUNTED % (AUTO) 100 %; WHITE BLOOD COUNT 6.9 10^3/uL (4.0-10.5)
[2018-12-03 22:13] LABS: ALANINE AMINOTRANSFERASE 22 U/L (9-52); ALBUMIN 4.4 g/dL (3.5-5.0); ALKALINE PHOSPHATASE 81 U/L (38-126); ANION GAP 11 (5-19); ASPARTATE AMINO TRANSFERASE 17 U/L (14-36); BILIRUBIN,DIRECT 0.3 mg/dL (0.0-0.4); BILIRUBIN,TOTAL 0.3 mg/dL (0.2-1.3); BLOOD UREA NITROGEN 11 mg/dL (7-20); CALCIUM 9.6 mg/dL (8.4-10.2); CARBON DIOXIDE 25 mmol/L (22-30); CHLORIDE 105 mmol/L (98-107); GLUCOSE 77 mg/dL (75-110); POTASSIUM 4.4 mmol/L (3.6-5.0); SODIUM 140.9 mmol/L (137-145); TOTAL PROTEIN 7.6 g/dL (6.3-8.2)
--- NOTE | 2018-12-04 01:16 | ER Document Report ---
ED General - General Chief Complaint: Chest Pain Stated Complaint: CHEST PAIN/RIGHT ARM SWELLING,HEADACHE Time Seen by Provider: 12/03/18 21:22 Primary Care Provider: YAW CORDON MD [Primary Care Provider] - Follow up in 3-5 days Notes: Patient is a 38-year-old female with past medical history of hypertension who presents with complaints of right-sided chest pain and right upper extremity pain that started roughly 6 hours prior to presentation. Patient states that she felt like her right arm had a heaviness or was burning and then she developed right-sided stabbing chest pain. Regard is being moderate in intensity. No associated nausea, vomiting or diaphoresis. States that symptoms lasted for approximately 1-1/2 hours and have been resolved since that time. Patient was recently hospitalized after hemorrhoidectomy in which she developed tachycardia and a bundle branch block, resolved after occasions, discharged home with cardiology follow-up but has not yet been able to follow-up. She denies a ny symptoms at the time of my assessment. Denies any known history of coronary artery disease. Denies any symptoms of any kind currently. States that nothing seemed to improve or worsen her symptoms when present. TRAVEL OUTSIDE OF THE [place] IN LAST 30 DAYS: No - Related Data Allergies/Adverse Reactions: acetaminophen [Acetaminophen] Allergy (Verified 12/03/18 22:27) hives, throat sore diphenhydramine HCl [From Benadryl] Allergy (Verified 12/03/18 22:27) hydrocodone [Hydrocodone] Allergy (Verified 12/03/18 22:27) lisinopril Allergy (Verified 12/03/18 22:27) Sulfa (Sulfonamide Antibiotics) Allergy (Verified 12/03/18 22:27) sumatriptan [From Imitrex] Allergy (Verified 12/03/18 22:27) sumatriptan succinate [From Imitrex] Allergy (Verified 12/03/18 22:27) tramadol Adverse Reaction (Verified 12/03/18 22:27) BANDAIDS Allergy (Uncoded 12/03/18 22:27) Blisters Past Medical History - General Information source: Patient - Social History Smoking Status: Never Smoker Frequency of alcohol use: None Drug Abuse: None Lives with: Spouse/Significant other Family History: Reviewed & Not Pertinent - Past Medical History Cardiac Medical History: Reports: Hx DVT, Hx Hypertension - not on meds for years Denies: Hx Coronary Artery Disease, Hx Heart Attack, Hx Pulmonary Embolism Pulmonary Medical History: Reports: Hx Asthma - restrictive lung disease Denies: Hx Bronchitis, Hx COPD, Hx Pneumonia, Hx Tuberculosis Neurological Medical History: Reports: Hx Migraine. Denies: Hx Cerebrovascular Accident, Hx Seizures Renal/ Medical History: Reports: Hx Ectopic , Hx Kidney Stones, Hx O varian Cysts - left ovary removed. Denies: Hx Peritoneal Dialysis GI Medical History: Reports: Hx Gastroesophageal Reflux Disease. Denies: Hx Crohn's Disease, Hx Diverticulitis, Hx Hepatitis, Hx Hiatal Hernia, Hx Irritable Bowel, Hx Ulcer, Hx Ulcerative Colitis Musculoskeletal Medical History: Reports Hx Arthritis - RT SHOULDER,rt hand, Reports Hx Musculoskeletal Trauma - rotator cuff injury Psychiatric Medical History: Reports: Hx Depression - post with 1st Infectious Medical History: Denies: Hx Hepatitis Past Surgical History: Reports: Hx Cholecystectomy, Hx Genitourinary Surgery - LEEP, Hx Gynecologic Surgery - right oophorectomy and salpingectomy, hemorrhagic left corpus luteum cyst, Hx Kidney (Renal Surgery) - urethral stricture, Hx Orthopedic Surgery - right hand, Hx Tubal Ligation, Hx Urinary Tract Surgery - URETHRAL STRICTURE. Denies: Hx Hysterectomy, Hx Mastectomy, Hx Open Heart Surgery, Hx Pacemaker - Immunizations Hx Diphtheria, Pertussis, Tetanus Vaccination: Yes Review of Systems - Review of Systems Notes: Constitutional: Negative for fever. HENT: Negative for sore throat. Eyes: Negative for visual changes. Cardiovascular: Positive for chest pain. Respiratory: Negative for shortness of breath. Gastrointestinal: Negative for abdominal pain, vomiting or diarrhea. Genitourinary: Negative for dysuria. Musculoskeletal: Negative for back pain. Skin: Negative for rash. Neurological: Negative for headaches, weakness or numbness. 10 point ROS negative except as marked above and in HPI. Physical Exam - Vital signs Vitals: Temp Pulse Resp BP Pulse Ox 98.0 F 85 20 142/90 H 98 12/03/18 20:47 12/03/18 20:47 12/03/18 20:47 12/03/18 20:47 12/03/18 20:47 Interpretation: Hypertensive Notes: PHYSICAL EXAMINATION: GENERAL: Well-appearing, well-nourished and in no acute distress. HEAD: Atraumatic, normocephalic. EYES: Pupils equal round and reactive to light, extraocular movements intact, sclera anicteric, conjunctiva are normal. ENT: nares patent, oropharynx clear without exudates. Moist mucous membranes. NECK: Normal range of motion, supple without lymphadenopathy LUNGS: Breath sounds clear to auscultation bilaterally and equal. No wheezes rales or rhonchi. HEART: Regular rate and rhythm without murmurs ABDOMEN: Soft, nontender, normoactive bowel sounds. No guarding, no rebound. No masses appreciated. EXTREMITIES: Normal range of motion, no pitting or edema. No cyanosis. NEUROLOGICAL: No focal neurological deficits. Moves all extremities spontaneously and on command. PSYCH: Normal mood, normal affect. SKIN: Warm, Dry, normal turgor, no rashes or lesions noted. Course - Re-evaluation Re-evalutation: 12/04/18 01:14 Presentation of chest pain in an otherwise well appearing patient. Low clinical suspicion for ACS given clinical history, exam, EKG without ST elevations or depressions, and negative initial troponin. HEART score less than or equal to 3. PE also seems unlikely given clinical history, absence of tachycardia or dyspnea. Patient is PERC criteria negative. CXR without evidence of pneumothorax or pneumonia. No widened mediastinum. Aortic dissection also seems unlikely given history, symmetric pulses, CXR, and vitals. Repeat troponin is pending. - Vital Signs Vital signs: Temp Pulse Resp BP Pulse Ox 98.0 F 85 20 142/90 H 98 12/03/18 20:47 12/03/18 20:47 12/03/18 20:47 12/03/18 20:47 12/03/18 20:47 - Laboratory Result Diagrams: 12/03/18 21:34 12/03/18 21:34 Laboratory results interpreted by me: 12/03/18 21:34 MCH 26.9 L RDW 14.9 H - Diagnostic Test Radiology reviewed: Image reviewed, Reports reviewed Radiology results interpreted by me: 12/04/18 01:14 Chest x-ray: No acute infiltrate or pneumothorax - EKG Interpretation by Me Additional EKG results interpreted by me: 12/04/18 01:14 Sinus rhythm, rate 83. No ST elevations or depressions. QTC is 414. Discharge - Discharge Clinical Impression: Chest pain Qualifiers: Chest pain type: unspecified Qualified Code(s): R07.9 - Chest pain, unspecified Condition: Good Disposition: HOME, SELF-CARE Additional Instructions: You were seen today for chest pain. The exact cause of your pain is unclear. However, based on your cardiac enzyme testing, chest x-ray, and EKG it does not appear that it is from an immediately life-threatening cause at this time. Although your testing here is normal is critical that you follow-up with your primary care physician for continued evaluation of this chest pain and possible stress testing. I recommended you see your physician within the next 24-48 hours to be evaluated for consideration of a stress test. Please return to emergency department immediately if you have worsening of your chest pain, shortness of breath, vomiting, become unable to exert yourself due to pain or difficulty breathing, you pass out, or have any pain that radiates into your arms, jaw, or back. Please also return if you have any additional symptoms that are concerning to you. Prescriptions: Amlodipine Besylate [Norvasc 5 mg Tablet] 5 mg PO DAILY #30 tablet Referrals: YAW CORDON MD [Primary Care Provider] - Follow up in 3-5 days
[2018-12-04 03:21] VITALS: BP 118/77
--- NOTE | 2018-12-04 10:53 | EKG REPORT ---
SEVERITY:- BORDERLINE ECG - SINUS RHYTHM PROBABLE LEFT ATRIAL ABNORMALITY : Confirmed by: Priscilla Chu 04-Dec-2018 10:52:18
== END 2018-12-04 03:25 | disposition home or self-care (01) ==
LOC: ER 20:29
DX: R07.9 Chest pain, unspecified (principal); M79.601 Pain in right arm; R11.2 Nausea with vomiting, unspecified; R61 Generalized hyperhidrosis; M79.89 Other specified soft tissue disorders; R51 Headache; I10 Essential (primary) hypertension
CPT/HCPCS: 36415; 71045; 80053; 84484; 85025; 93005; 93010; 99285

== ENCOUNTER → 2018-12-28 | Outpatient (CLI) | payer MEDICAID ==
--- NOTE | 2018-12-28 20:36 | XCELERA REPORT ---
[address] [address] Transthoracic Echocardiogram Report Name: ANA MARIA PEREZ Age: 38 yrs Gender: Female : 1980 Patient Status: Outpatient Patient Location: Study Date: 12/28/2018 10:18 AM Height: 64 in Weight: 186 lb BSA: 1.9 m2 Reason For Study: MVP Ordering Physician: JESSY CEDEÑO Performed By: Daljit Fortune Interpretation Summary Study quality fair. Lack of contrat opacification limits evaluation for intracardiac mass/ thrombus. LVEF appears normal at 60-65%. RV size and systolic function appears normal. The transmitral spectral Doppler flow pattern is normal for age The aortic valve opens well. MV leafelts appear thickened with no obvious MV prolapse noted. Mild central mitral regurgitation noted. There is a mild to moderate amount of tricuspid regurgitation Right ventricular systolic pressure is normal. There is a mild amount of pulmonic regurgitation There is no pericardial effusion. The aortic root is normal size. The inferior vena cava appeared small and collapsed with respiration (RAP 0-5 mmHg) MMode/2D Measurements & Calculations RVDd: 3.5 cm LVIDd: 4.8 cm FS: 39.1 % Ao root diam: IVSd: 0.76 cm LVIDs: 2.9 cm EDV(Teich): 2.7 cm LVPWd: 0.82 cm 105.0 ml Ao root area: ESV(Teich): 32.0 ml 5.9 cm2 LA dimension: EF(Teich): 69.5 % 3.4 cm LVLd ap4: 8.9 cm SV(MOD-sp4): EDV(MOD-sp4): 62.0 ml 107.0 ml LVLs ap4: 7.0 cm ESV(MOD-sp4): 45.0 ml EF(MOD-sp4): 57.9 % Doppler Measurements & Calculations MV E max kiera: MV P1/2t max kiera: Ao V2 max: LV V1 max P.6 cm/sec 84.2 cm/sec 128.5 cm/sec 3.0 mmHg MV A max kiera: MV P1/2t: 64.1 msec Ao max PG: LV V1 max: 59.0 cm/sec MVA(P1/2t): 3.4 cm2 6.6 mmHg 86.7 cm/sec MV E/A: 1.4 MV dec slope: LV dP/dt: 379.0 mmHg/s 385.0 cm/sec2 MV dec time: 0.20 sec PA V2 max: PI end-d kiera: TR max kiera: MV P1/2t-pr_phl: 92.3 cm/sec 115.5 cm/sec 238.9 cm/sec 64.1 msec PA max PG: TR max P.4 mmHg 22.8 mmHg Left Ventricle False tendon noted in LV cavity. The left ventricular ejection fraction is normal. LV EF is 60-65%. The transmitral spectral Doppler flow pattern is normal for age. Right Ventricle A moderator band is seen in the right ventricle. The right ventricle is normal in size and function. Atria The right atrium is normal in size. The left atrial size is normal. Mitral Valve The mitral valve leaflets appear thickened, but open well. There is a mild amount of mitral regurgitation. Aortic Valve The aortic valve opens well. The aortic valve is trileaflet. There is a peak gradient of 7 mm of Hg. Tricuspid Valve The tricuspid valve is not well visualized secondary to technical limitations. Tricuspid leaflets are thickened. There is a mild to moderate amount of tricuspid regurgitation. Right ventricular systolic pressure is normal. Pulmonic Valve The pulmonic valve is not well visualized. There is a mild amount of pulmonic regurgitation. Great Vessels The aortic root is normal size. The inferior vena cava appeared small and collapsed with respiration (RAP 0-5 mmHg). Effusions There is no pericardial effusion. : JESSY CEDEÑO > Aaron Garcia
== END ==
LOC: SP 09:27
PROVIDERS: ATTEND Specialist
DX: I34.1 Nonrheumatic mitral (valve) prolapse (principal)
CPT/HCPCS: 93306

== ENCOUNTER 2019-01-24 12:04 | Emergency (ER) | payer MEDICAID ==
[2019-01-24 12:09] VITALS: BP 146/90
[2019-01-24] MEDS ORDERED: ONDANSETRON HCL INJ/PF 4 MG/2 ML SDV IV ONE (12:41)
--- NOTE | 2019-01-24 12:44 | ER Document Report ---
ED Medical Screen (RME) - General Chief Complaint: Flank Pain Stated Complaint: RIGHT FLANK PAIN, NAUSEA Time Seen by Provider: 01/24/19 12:40 Primary Care Provider: JESSY CEDEÑO MD [Primary Care Provider] - Follow up as needed TRAVEL OUTSIDE OF THE [place] IN LAST 30 DAYS: No - HPI Notes: 01/24/19 12:43 Patient is a 38-year-old female with a history of cholecystectomy, left nephrectomy, kidney stones who presents complaining of right lower quadrant abdominal pain and right lower back pain. Patient states that the pain began this morning and is accompanied with nausea. Patient describes the pain is sharp. Patient states that this does not resemble previous kidney stones that she has no trouble urinating which she normally would have with a kidney stone. She has not noticed any vaginal discharge, odor, or bleeding. Patient does report having diarrhea yesterday. No other significant past medical history. Denies NAYLOR, fever, neck pain, URI, CP, SOB, vomiting, dysuria, back pain, or rash. I have treated and performed a rapid initial assessment of this patient. A comprehensive ED assessment and evaluation of the patient, analysis of test results and completion of medical decision making process will be conducted by additional ED providers. We will defer imaging to main side provider due to limitations with abdominal exam PHYSICAL EXAMINATION: GENERAL: Well-appearing, well-nourished and in no acute distress. A&Ox4. Answers questions appropriately. LUNGS: Breath sounds clear to auscultation bilaterally and equal. No wheezes rales or rhonchi. HEART: Regular rate and rhythm without murmurs, rubs, gallops. ABDOMEN: Soft, nondistended abdomen. No guarding, no rebound. Normal bowel sounds present. No CVA tenderness bilaterally. + tenderness Rt lower abd (cannot elicit thorough abd exam w/o bed, however). - Related Data Allergies/Adverse Reactions: acetaminophen [Acetaminophen] Allergy (Verified 01/24/19 12:05) hives, throat sore diphenhydramine HCl [From Benadryl] Allergy (Verified 01/24/19 12:05) hydrocodone [Hydrocodone] Allergy (Verified 01/24/19 12:05) lisinopril Allergy (Verified 01/24/19 12:05) Sulfa (Sulfonamide Antibiotics) Allergy (Verified 01/24/19 12:05) sumatriptan [From Imitrex] Allergy (Verified 01/24/19 12:05) sumatriptan succinate [From Imitrex] Allergy (Verified 01/24/19 12:05) tramadol Adverse Reaction (Verified 01/24/19 12:05) BANDAIDS Allergy (Uncoded 01/24/19 12:05) Blisters Past Medical History - Social History Family history: Reviewed & Not Pertinent - Past Medical History Cardiac Medical History: Reports: Hx DVT, Hx Hypertension - not on meds for years Denies: Hx Coronary Artery Disease, Hx Heart Attack, Hx Pulmonary Embolism Pulmonary Medical History: Reports: Hx Asthma - restrictive lung disease Denies: Hx Bronchitis, Hx COPD, Hx Pneumonia, Hx Tuberculosis Neurological Medical History: Reports: Hx Migraine. Denies: Hx Cerebrovascular Accident, Hx Seizures Renal/ Medical History: Reports: Hx Ectopic , Hx Kidney Stones, Hx Ovarian Cysts - left ovary removed. Denies: Hx Peritoneal Dialysis GI Medical History: Reports: Hx Gastroesophageal Reflux Disease. Denies: Hx Crohn's Disease, Hx Diverticulitis, Hx Hepatitis, Hx Hiatal Hernia, Hx Irritable Bowel, Hx Ulcer, Hx Ulcerative Colitis Musculoskeltal Medical History: Reports Hx Arthritis - RT SHOULDER,rt hand, Reports Hx Musculoskeletal Trauma - rotator cuff injury Psychiatric Medical History: Reports: Hx Depression - post with 1st Infectious Medical History: Denies: Hx Hepatitis Past Surgical History: Reports: Hx Cholecystectomy, Hx Genitourinary Surgery - LEEP, Hx Gynecologic Surgery - right oophorectomy and salpingectomy, hemorrhagic left corpus luteum cyst, Hx Kidney (Renal Surgery) - urethral stricture, Hx Orthopedic Surgery - right hand, Hx Tubal Ligation, Hx Urinary Tract Surgery - URETHRAL STRICTURE. Denies: Hx Hysterectomy, Hx Mastectomy, Hx Open Heart Surgery, Hx Pacemaker - Immunizations Hx Diphtheria, Pertussis, Tetanus Vaccination: Yes History of Influenza Vaccine for 04/2017 - 09/2017 Season: No Physical Exam - Vital signs Vitals: Temp Pulse Resp BP Pulse Ox 98.2 F 73 18 146/90 H 97 01/24/19 12:07 01/24/19 12:07 01/24/19 12:07 01/24/19 12:07 01/24/19 12:07 Course - Vital Signs Vital signs: Temp Pulse Resp BP Pulse Ox 98.2 F 73 18 146/90 H 97 01/24/19 12:07 01/24/19 12:07 01/24/19 12:07 01/24/19 12:07 01/24/19 12:07 Doctor's Discharge - Discharge Referrals: JESSY CEDEÑO MD [Primary Care Provider] - Follow up as needed
[2019-01-24 13:17] LABS: ABSOLUTE BASOPHILS # (AUTO) 0.1 10^3/uL (0.0-0.2); ABSOLUTE LYMPHOCYTES (AUTO) 1.8 10^3/uL (0.5-4.7); ABSOLUTE MONOCYTES (AUTO) 0.3 10^3/uL (0.1-1.4); BASOPHILS % (AUTO) 1.2 % (0-2); EOSINOPHILS % (AUTO) 0.4 % (0-6); HEMATOCRIT 43.6 % (36.0-47.0); HEMOGLOBIN 14.5 g/dL (12.0-15.5); LYMPHOCYTES % (AUTO) 29.2 % (13-45); MEAN CORPUSCULAR HEMOGLOBIN 27.1 pg (27.0-33.4); MEAN CORPUSCULAR HGB CONC 33.2 g/dL (32.0-36.0); MEAN CORPUSCULAR VOLUME 82 fl (80-97); MONOCYTES % (AUTO) 4.9 % (3-13); PLATELET COUNT 370 10^3/uL (150-450); RED BLOOD COUNT 5.33 10^6/uL (3.72-5.28); RED CELL DISTRIBUTION WIDTH 14.8 % (11.5-14.0); SEGMENTED NEUTROPHILS % (AUTO) 64.3 % (42-78); TOTAL CELLS COUNTED % (AUTO) 100 %; WHITE BLOOD COUNT 6.3 10^3/uL (4.0-10.5)
[2019-01-24 13:34] LABS: ALANINE AMINOTRANSFERASE 18 U/L (9-52); ALBUMIN 4.6 g/dL (3.5-5.0); ALKALINE PHOSPHATASE 86 U/L (38-126); ANION GAP 9 (5-19); ASPARTATE AMINO TRANSFERASE 20 U/L (14-36); BILIRUBIN,DIRECT 0.2 mg/dL (0.0-0.4); BILIRUBIN,TOTAL 0.4 mg/dL (0.2-1.3); BLOOD UREA NITROGEN 15 mg/dL (7-20); CALCIUM 9.4 mg/dL (8.4-10.2); CARBON DIOXIDE 26 mmol/L (22-30); CHLORIDE 107 mmol/L (98-107); GLUCOSE 90 mg/dL (75-110); LIPASE 71.4 U/L (23-300); POTASSIUM 4.2 mmol/L (3.6-5.0); SODIUM 142.4 mmol/L (137-145); TOTAL PROTEIN 8.4 g/dL (6.3-8.2)
--- NOTE | 2019-01-24 14:22 | ER Document Report ---
ED General - General Chief Complaint: Flank Pain Stated Complaint: RIGHT FLANK PAIN, NAUSEA Time Seen by Provider: 01/24/19 12:40 Primary Care Provider: YAW CORDON MD [Primary Care Provider] - Follow up in 3-5 days JESSY CEDEÑO MD [ACTIVE STAFF] - Follow up as needed Mode of Arrival: Ambulatory Information source: Patient Notes: This 38-year-old female Angi Weldon presents to the emergency department with complaints of right flank pain that started this morning. She reports she woke up went to the bathroom and when she laid back down she started having right flank pain. She describes the pain as sharp stabbing that comes and goes. Denies pain with void. Denies other symptoms such as fever vomiting diarrhea. Reports history of kidney stones. Reports increased pain with movement. Reports increased pain when she lays certain positions and when she sits up. Denies trauma. TRAVEL OUTSIDE OF THE [place] IN LAST 30 DAYS: No - HPI Onset: This morning Onset/Duration: Sudden Quality of pain: Sharp Severity: Severe Pain Level: 4 Associated symptoms: None Exacerbated by: Movement Relieved by: Denies Similar symptoms previously: Yes Recently seen / treated by doctor: No - Related Data Allergies/Adverse Reactions: acetaminophen [Acetaminophen] Allergy (Verified 01/24/19 12:05) hives, throat sore diphenhydramine HCl [From Benadryl] Allergy (Verified 01/24/19 12:05) hydrocodone [Hydrocodone] Allergy (Verified 01/24/19 12:05) lisinopril Allergy (Verified 01/24/19 12:05) Sulfa (Sulfonamide Antibiotics) Allergy (Verified 01/24/19 12:05) sumatriptan [From Imitrex] Allergy (Verified 01/24/19 12:05) sumatriptan succinate [From Imitrex] Allergy (Verified 01/24/19 12:05) tramadol Adverse Reaction (Verified 01/24/19 12:05) BANDAIDS Allergy (Uncoded 01/24/19 12:05) Blisters Past Medical History - General Information source: Patient Last Menstrual Period: depo - Social History Smoking Status: Never Smoker Chew tobacco use (# tins/day): No Frequency of alcohol use: Occasional Drug Abuse: None Lives with: Family Family History: Reviewed & Not Pertinent Patient has suicidal ideation: No Patient has homicidal ideation: No - Past Medical History Cardiac Medical History: Reports: Hx DVT, Hx Hypertension - not on meds for years Denies: Hx Coronary Artery Disease, Hx Heart Attack, Hx Pulmonary Embolism Pulmonary Medical History: Reports: Hx Asthma - restrictive lung disease Denies: Hx Bronchitis, Hx COPD, Hx Pneumonia, Hx Tuberculosis Neurological Medical History: Reports: Hx Migraine. Denies: Hx Cerebrovascular Accident, Hx Seizures Renal/ Medical History: Reports: Hx Ectopic , Hx Kidney Stones, Hx Ovarian Cysts - left ovary removed. Denies: Hx Peritoneal Dialysis GI Medical History: Reports: Hx Gastroesophageal Reflux Disease. Denies: Hx Crohn's Disease, Hx Diverticulitis, Hx Hepatitis, Hx Hiatal Hernia, Hx Irritable Bowel, Hx Ulcer, Hx Ulcerative Colitis Musculoskeletal Medical History: Reports Hx Arthritis - RT SHOULDER,rt hand, Reports Hx Musculoskeletal Trauma - rotator cuff injury Psychiatric Medical History: Reports: Hx Depression - post with 1st Infectious Medical History: Denies: Hx Hepatitis Past Surgical History: Reports: Hx Cholecystectomy, Hx Genitourinary Surgery - LEEP, Hx Gynecologic Surgery - right oophorectomy and salpingectomy, hemorrhagic left corpus luteum cyst, Hx Kidney (Renal Surgery) - urethral stricture, Hx Orthopedic Surgery - right hand, Hx Tubal Ligation, Hx Urinary Tract Surgery - URETHRAL STRICTURE. Denies: Hx Hysterectomy, Hx Mastectomy, Hx Open Heart Surgery, Hx Pacemaker - Immunizations Hx Diphtheria, Pertussis, Tetanus Vaccination: Yes Review of Systems - Review of Systems Notes: Review HPI for review of systems., All other systems negative Physical Exam - Vital signs Vitals: Temp Pulse Resp BP Pulse Ox 98.2 F 73 18 146/90 H 97 01/24/19 12:07 01/24/19 12:07 01/24/19 12:07 01/24/19 12:07 01/24/19 12:07 - Notes Notes: PHYSICAL EXAMINATION: GENERAL: Well-appearing and in no acute distress nontoxic looking HEAD: Atraumatic, normocephalic. EYES: Pupils equal round , extraocular movements intact, sclera anicteric, conjunctiva are normal. ENT: nares patent, Moist mucous membranes. NECK: Normal range of motion, supple without lymphadenopathy LUNGS: CTAB and equal. No wheezes rales or rhonchi. HEART: Regular rate and rhythm without murmurs ABDOMEN: Soft, no tenderness. No guarding, no rebound BACK: Right CVA ttp EXTREMITIES: Normal range of motion, NEUROLOGICAL: Cranial nerves grossly intact. PSYCH: Normal mood, normal affect. SKIN: Warm, Dry, normal turgor, no rashes or lesions noted Course - Re-evaluation Re-evalutation: 01/24/19 15:06 Relatively healthy 38-year-old female that presents today with complaints of right flank pain. Reports symptoms started this morning after she woke up went to the bathroom. Denies fever vomiting diarrhea.. She denies urinary symptoms such as hesitancy pain with void. She denies vaginal discharge. Patient reports history of kidney stones. Reports she stays away from sodas and drinks sparkling water. She reports increased pain with movement. Patient complains of pain with palpation to the right flank. Nubain ordered. pt declined nubain. Labs unremarkable hematuria noted will do CT. Patient updated on plan of care. 01/24/19 15:45 CT is negative for kidney stone. No significant or acute process in the abdomen or pelvis. Patient was informed. UA shows leukocytes with hematuria. We will treat patient for UTI. Patient reports she cannot take Tylenol or Motrin. She will take aspirin for the pain. She was instructed to follow-up with her primary care provider which is Dr. Cordon. She verbalized understanding to all instructions. Dictation of this chart was performed using voice recognition software; therefore, there may be some unintended grammatical errors. 01/24/19 20:13 01/24/19 12:56 01/24/19 12:56 MCV 82 fl (80-97) 01/24/19 12:56 MCH 27.1 pg (27.0-33.4) 01/24/19 12:56 MCHC 33.2 g/dL (32.0-36.0) 01/24/19 12:56 RDW 14.8 % (11.5-14.0) H 01/24/19 12:56 Seg Neutrophils % 64.3 % (42-78) 01/24/19 12:56 Lymphocytes % 29.2 % (13-45) 01/24/19 12:56 Monocytes % 4.9 % (3-13) 01/24/19 12:56 Eosinophils % 0.4 % (0-6) 01/24/19 12:56 Basophils % 1.2 % (0-2) 01/24/19 12:56 Absolute Neutrophils 4.0 10^3/uL (1.7-8.2) 01/24/19 12:56 Absolute Lymphocytes 1.8 10^3/uL (0.5-4.7) 01/24/19 12:56 Absolute Monocytes 0.3 10^3/uL (0.1-1.4) 01/24/19 12:56 Absolute Eosinophils 0.0 10^3/uL (0.0-0.6) 01/24/19 12:56 Absolute Basophils 0.1 10^3/uL (0.0-0.2) 01/24/19 12:56 Chloride 107 mmol/L (98-107) 01/24/19 12:56 Carbon Dioxide 26 mmol/L (22-30) 01/24/19 12:56 Anion Gap 9 (5-19) 01/24/19 12:56 Est GFR ( Amer) > 60 (>60) 01/24/19 12:56 Est GFR (Non-Af Amer) > 60 (>60) 01/24/19 12:56 Glucose 90 mg/dL (75-110) 01/24/19 12:56 Calcium 9.4 mg/dL (8.4-10.2) 01/24/19 12:56 Total Bilirubin 0.4 mg/dL (0.2-1.3) 01/24/19 12:56 AST 20 U/L (14-36) 01/24/19 12:56 ALT 18 U/L (9-52) 01/24/19 12:56 Alkaline Phosphatase 86 U/L (38-126) 01/24/19 12:56 Total Protein 8.4 g/dL (6.3-8.2) H 01/24/19 12:56 Albumin 4.6 g/dL (3.5-5.0) 01/24/19 12:56 Lipase 71.4 U/L (23-300) 01/24/19 12:56 Urine Color YELLOW 01/24/19 14:25 Urine Appearance SLIGHTLY-CLOUDY 01/24/19 14:25 Urine pH 5.0 (5.0-9.0) 01/24/19 14:25 Ur Specific [place] 1.017 01/24/19 14:25 Urine Protein NEGATIVE mg/dL (NEGATIVE) 01/24/19 14:25 Urine Glucose (UA) NEGATIVE mg/dL (NEGATIVE) 01/24/19 14:25 Urine Ketones NEGATIVE mg/dL (NEGATIVE) 01/24/19 14:25 Urine Blood LARGE (NEGATIVE) H 01/24/19 14:25 Urine Nitrite NEGATIVE (NEGATIVE) 01/24/19 14:25 Ur Leukocyte Esterase LARGE (NEGATIVE) H 01/24/19 14:25 Urine WBC (Auto) 8 /HPF 01/24/19 14:25 Urine RBC (Auto) 10 /HPF 01/24/19 14:25 Abdomen/Pelvis CT 01/24/19 15:00 IMPRESSION: NO SIGNIFICANT OR ACUTE PROCESS IN THE ABDOMEN OR PELVIS. 01/24/19 20:14 - Vital Signs Vital signs: Temp Pulse Resp BP Pulse Ox 98.2 F 73 18 146/90 H 97 01/24/19 12:07 01/24/19 12:07 01/24/19 12:07 01/24/19 12:07 01/24/19 12:07 - Laboratory Result Diagrams: 01/24/19 12:56 01/24/19 12:56 Laboratory results interpreted by me: 01/24/19 01/24/19 01/24/19 12:56 12:56 14:25 RBC 5.33 H RDW 14.8 H Total Protein 8.4 H Urine Blood LARGE H Ur Leukocyte Esterase LARGE H - Diagnostic Test Radiology reviewed: Image reviewed, Reports reviewed Discharge - Discharge Clinical Impression: Flank pain UTI (urinary tract infection) Qualifiers: Urinary tract infection type: site unspecified Hematuria presence: with hematuria Qualified Code(s): N39.0 - Urinary tract infection, site not specified Condition: Stable Disposition: HOME, SELF-CARE Instructions: Flank Pain ([facility]), Fluconazole ([facility]), Nitrofurantoin ([facility]), Urinary Tract Infection ([facility]) Additional Instructions: *You have been evaluated for flank pain, UTI *Take medication as prescribed *Follow up with Dr Marina within 5 days *Return to ED for worsening condition, changes, needs *Return to ED if not better in 24 hours Prescriptions: Fluconazole [Diflucan] 150 mg PO ONCE PRN #1 tablet PRN Reason: Nitrofurantoin/Nitrofuran Mac [Macrobid 100 mg Capsule] 100 mg PO BID #20 capsule Forms: Return to Work Referrals: JESSY CEDEÑO MD [ACTIVE STAFF] - Follow up as needed YAW CORDON MD [Primary Care Provider] - Follow up in 3-5 days
[2019-01-24 14:43] LABS: APPEARANCE,URINE SLIGHTLY-CLOUDY; BILIRUBIN,URINE NEGATIVE (NEGATIVE); COLOR,URINE YELLOW; GLUCOSE, URINE NEGATIVE (NEGATIVE); KETONES,URINE NEGATIVE (NEGATIVE); LEUKOCYTE ESTERASE,URINE LARGE (NEGATIVE); NITRITE,URINE NEGATIVE (NEGATIVE); PROTEIN,URINE NEGATIVE (NEGATIVE); URINE SPECIFIC GRAVITY 1.017; UROBILINOGEN,URINE NEGATIVE mg/dL (<2.0)
[2019-01-24] MEDS ORDERED: NALBUPHINE HCL INJ 10 MG/1 ML AMPULE INJ ONE (15:00)
--- NOTE | 2019-01-24 15:36 | RADIOLOGY REPORT (SQ) ---
EXAM DESCRIPTION: CT ABD/PELVIS NO ORAL OR IV COMPLETED DATE/TIME: 01/24/2019 3:23 pm REASON FOR STUDY: right flank pain hx kidney stones COMPARISON: None. TECHNIQUE: CT scan of the abdomen and pelvis performed without intravenous or oral contrast. Images reviewed with lung, soft tissue, and bone windows. Reconstructed coronal and sagittal MPR images revi ewed. All images stored on PACS. All CT scanners at this facility use dose modulation, iterative reconstruction, and/or weight based d osing when appropriate to reduce radiation dose to as low as reasonably achievable (ALARA). [facility]: Dose Right [facility]: CareDose [facility]: Dose Right [facility]: Teradose 4D [facility]: Smart X Plus Two Solutions RADIATION DOSE: CT Rad equipment meets quality standard of care and radiation dose reduction techniq ues were employed. CTDIvol: 10.2 mGy. DLP: 519 mGy-cm.mGy. LIMITATIONS: None. FINDINGS: LOWER CHEST: No significant findings. No nodules or infiltrates. NON-CONTRASTED LIVER, SPLEEN, ADRENALS: Evaluation limited by lack of IV contrast. No identified sign ificant masses. PANCREAS: No masses. No peripancreatic inflammatory changes. GALLBLADDER: Surgically absent. RIGHT KIDNEY AND URETER: No suspicious masses. Assessment limited by lack of IV contrast. No signif icant calcifications. No hydronephrosis or hydroureter. LEFT KIDNEY AND URETER: No suspicious masses. Assessment limited by lack of IV contrast. No signifi cant calcifications. No hydronephrosis or hydroureter. AORTA AND RETROPERITONEUM: No aneurysm. No retroperitoneal masses or adenopathy. BOWEL AND PERITONEAL CAVITY: No obvious masses or inflammatory changes. No free fluid. APPENDIX: Normal. PELVIS, BLADDER, AND ABDOMINAL WALL:No abnormal masses. No free fluid. Bladder normal. BONES: No significant findings. OTHER: No other significant finding. IMPRESSION: NO SIGNIFICANT OR ACUTE PROCESS IN THE ABDOMEN OR PELVIS. COMMENT: Quality ID # [id number]: Final reports with documentation of one or more dose reduction techniques (e.g., Automated exposure control, adjustment of the mA and/or kV according to patient size, use of iterative reconstruction technique) TECHNICAL DOCUMENTATION: JOB ID: [id number] [employer]- All Rights Reserved Reading location - IP/workstation name: [email or web address]
== END 2019-01-24 16:19 | disposition home or self-care (01) ==
LOC: ER 12:04
DX: N39.0 Urinary tract infection, site not specified (principal); R31.9 Hematuria, unspecified; R10.9 Unspecified abdominal pain; I10 Essential (primary) hypertension; J45.909 Unspecified asthma, uncomplicated; Z87.442 Personal history of urinary calculi; Z88.8 Allergy status to other drugs, medicaments and biological substances; Z88.5 Allergy status to narcotic agent; Z88.2 Allergy status to sulfonamides; Z88.6 Allergy status to analgesic agent
CPT/HCPCS: 99284; 96374; 36415; 83690; 85025; 81025; 80053; 81001; 74176; J2405

== ENCOUNTER 2019-03-19 12:53 | Emergency (ER) | payer OTHER, MEDICAID ==
[2019-03-19] MEDS ORDERED: CYCLOBENZAPRINE HCL 10 MG TABLET PO ONE (13:56)
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
[2019-03-19 14:56] VITALS: BP 136/92
== END 2019-03-19 15:00 | disposition home or self-care (01) ==
LOC: ER 12:53
DX: S29.012A Strain of muscle and tendon of back wall of thorax, initial encounter (principal); S46.912A Strain of unspecified muscle, fascia and tendon at shoulder and upper arm level, left arm, initial encounter; S29.011A Strain of muscle and tendon of front wall of thorax, initial encounter; S21.109A Unspecified open wound of unspecified front wall of thorax without penetration into thoracic cavity, initial encounter; R51 Headache; M25.512 Pain in left shoulder; M54.2 Cervicalgia; R07.9 Chest pain, unspecified; I10 Essential (primary) hypertension; V87.7XXA Person injured in collision between other specified motor vehicles (traffic), initial encounter; J45.909 Unspecified asthma, uncomplicated
CPT/HCPCS: 71046; 99283

== ENCOUNTER → 2019-05-27 | Outpatient (CLI) | payer MEDICAID ==
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
== END ==
LOC: OD 11:32
PROVIDERS: ATTEND Registered Nurse
DX: J45.41 Moderate persistent asthma with (acute) exacerbation (principal)
CPT/HCPCS: 71046

== ENCOUNTER 2019-07-11 15:02 | Emergency (ER) | payer MEDICAID ==
[2019-07-11 15:38] LABS: ABSOLUTE BASOPHILS # (AUTO) 0.1 10^3/uL (0.0-0.2); ABSOLUTE LYMPHOCYTES (AUTO) 1.4 10^3/uL (0.5-4.7); ABSOLUTE MONOCYTES (AUTO) 0.4 10^3/uL (0.1-1.4); ABSOLUTE NEUT (AUTO) 2.8 10^3/uL (1.7-8.2); BASOPHILS % (AUTO) 1.9 % (0-2); EOSINOPHILS % (AUTO) 0.7 % (0-6); HEMATOCRIT 42.2 % (36.0-47.0); HEMOGLOBIN 13.9 g/dL (12.0-15.5); MEAN CORPUSCULAR HEMOGLOBIN 26.9 pg (27.0-33.4); MEAN CORPUSCULAR HGB CONC 32.9 g/dL (32.0-36.0); MEAN CORPUSCULAR VOLUME 82 fl (80-97); MONOCYTES % (AUTO) 9.1 % (3-13); PLATELET COUNT 329 10^3/uL (150-450); RED BLOOD COUNT 5.17 10^6/uL (3.72-5.28); RED CELL DISTRIBUTION WIDTH 15.1 % (11.5-14.0); SEGMENTED NEUTROPHILS % (AUTO) 59.3 % (42-78); TOTAL CELLS COUNTED % (AUTO) 100 %; WHITE BLOOD COUNT 4.7 10^3/uL (4.0-10.5)
[2019-07-11 15:56] LABS: ALBUMIN 4.5 g/dL (3.5-5.0); ALKALINE PHOSPHATASE 93 U/L (38-126); ANION GAP 14 (5-19); ASPARTATE AMINO TRANSFERASE 22 U/L (14-36); BILIRUBIN,DIRECT 0.2 mg/dL (0.0-0.4); BILIRUBIN,TOTAL 0.5 mg/dL (0.2-1.3); BLOOD UREA NITROGEN 10 mg/dL (7-20); CALCIUM 9.5 mg/dL (8.4-10.2); CARBON DIOXIDE 26 mmol/L (22-30); CHLORIDE 101 mmol/L (98-107); CREATINE KINASE 232 U/L (30-135); GLUCOSE 84 mg/dL (75-110); POTASSIUM 3.8 mmol/L (3.6-5.0)
[2019-07-11] MEDS ORDERED: ASPIRIN 325 MG TABLET PO ONE (15:58)
[2019-07-11 16:08] LABS: CREATINE KINASE MB 0.71 ng/mL (<4.55)
[2019-07-11 16:12] LABS: TROPONIN I < 0.012 ng/mL
--- NOTE | 2019-07-11 16:23 | RADIOLOGY REPORT (SQ) ---
EXAM DESCRIPTION: CHEST SINGLE VIEW COMPLETED DATE/TIME: 07/11/2019 4:09 pm REASON FOR STUDY: chest pain COMPARISON: 05/27/2019 TECHNIQUE: Single frontal radiographic view of the chest acquired. NUMBER OF VIEWS: One view. LIMITATIONS: None. FINDINGS: LUNGS AND PLEURA: No pneumothorax. No consolidation or pleural effusion. MEDIASTINUM AND HILAR STRUCTURES: Stable. HEART AND VASCULAR STRUCTURES: Stable. BONES: No acute findings. HARDWARE: None in the chest. OTHER: No other significant finding. IMPRESSION: NO ACUTE FINDINGS. TECHNICAL DOCUMENTATION: JOB ID: [id number] 2010 [employer]- All Rights Reserved Reading location - IP/workstation name: [email or web address]
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
[2019-07-11] MEDS ORDERED: IPRATROPIUM/ALBUTEROL 0.5-2.5 MG/3 ML AMPUL NEB SCH (17:00)
[2019-07-11] MEDS ORDERED: AZITHROMYCIN 250 MG TABLET PO ONE (17:40)
[2019-07-11] MEDS ORDERED: DEXAMETHASONE SOD PHOS INJ 10 MG/1 ML VIAL PO ONE (17:46)
[2019-07-11] MEDS ORDERED: DEXAMETHASONE 4 MG TABLET PO ONE (18:20)
--- NOTE | 2019-07-11 19:26 | EKG REPORT ---
SEVERITY:- ABNORMAL ECG - SINUS RHYTHM LEFT BUNDLE BRANCH BLOCK : Confirmed by: Radha Vasquez MD 11-Jul-2019 19:25:53
--- NOTE | 2019-07-11 19:26 | EKG REPORT ---
SEVERITY:- ABNORMAL ECG - SINUS RHYTHM FIRST DEGREE AV BLOCK LEFT BUNDLE BRANCH BLOCK : Confirmed by: Radha Vasquez MD 11-Jul-2019 19:25:49
[2019-07-11 19:44] VITALS: BP 161/99
== END 2019-07-11 20:07 | disposition home or self-care (01) ==
LOC: ER 15:02
DX: R05 Cough (principal); R07.9 Chest pain, unspecified; R22.1 Localized swelling, mass and lump, neck; Z86.718 Personal history of other venous thrombosis and embolism; Z90.49 Acquired absence of other specified parts of digestive tract; Z88.6 Allergy status to analgesic agent; Z88.2 Allergy status to sulfonamides
CPT/HCPCS: 93005; 94640; 99285; 36415; 82553; 82550; 85025; 80053; 84484; 85379; 71045; 93010; Q0144; J3490; J7620; J8540

== ENCOUNTER 2020-07-28 09:52 | Emergency (ER) | payer MEDICAID ==
--- NOTE | 2020-07-28 11:05 | ER Document Report ---
ED Medical Screen (RME) - General Chief Complaint: Pain All Over Stated Complaint: PAIN ALL OVER Time Seen by Provider: 07/28/20 11:02 Notes: HPI: 40-year-old female presenting for evaluation of generalized pain, cough, chest pain, shortness of breath. Symptoms began approximately 8 days ago. Had a positive Covid test 6 days ago. Symptoms have not improved. Had fever up to 103 last night. PHYSICAL EXAMINATION: Somewhat dramatic presentation. Lung sounds are slightly decreased with very slight posterior right lung wheezing. Patient is somewhat tachypneic. Complains of generalized discomfort with palpation of anything I have greeted and performed a rapid initial assessment of this patient. A comprehensive ED assessment and evaluation of the patient, analysis of test results and completion of medical decision making process will be conducted by an additional ED providers. Please note that clinical decision making for this patient was made during the 2019 pandemic of novel coronavirus which caused a significant strain on the healthcare system including at this particular facility. Criteria for admission discharge and level of care decisions as well as treatment decisions have necessarily changed TRAVEL OUTSIDE OF THE [place] IN LAST 30 DAYS: No - Related Data Allergies/Adverse Reactions: acetaminophen [Acetaminophen] Allergy (Verified 07/11/19 15:51) hives, throat sore adhesive Allergy (Verified 07/11/19 15:51) Blisters diphenhydramine HCl [From Benadryl] Allergy (Verified 07/11/19 15:51) hydrocodone [Hydrocodone] Allergy (Verified 07/11/19 15:51) lisinopril Allergy (Verified 07/11/19 15:51) Sulfa (Sulfonamide Antibiotics) Allergy (Verified 07/11/19 15:51) sumatriptan [From Imitrex] Allergy (Verified 07/11/19 15:51) sumatriptan succinate [From Imitrex] Allergy (Verified 07/11/19 15:51) tramadol Adverse Reaction (Verified 07/11/19 15:51) BANDAIDS Allergy (Uncoded 03/19/19 12:57) Blisters Past Medical History - Social History Family history: Reviewed & Not Pertinent - Past Medical History Cardiac Medical History: Reports: Hx DVT, Hx Hypertension - not on meds for years Denies: Hx Coronary Artery Disease, Hx Heart Attack, Hx Pulmonary Embolism Pulmonary Medical History: Reports: Hx Asthma - restrictive lung disease Denies: Hx Bronchitis, Hx COPD, Hx Pneumonia, Hx Tuberculosis Neurological Medical History: Reports: Hx Migraine. Denies: Hx Cerebrovascular Accident, Hx Seizures Renal/ Medical History: Reports: Hx Ectopic , Hx Kidney Stones, Hx Ovarian Cysts - left ovary removed. Denies: Hx Peritoneal Dialysis GI Medical History: Reports: Hx Gastroesophageal Reflux Disease. Denies: Hx Crohn's Disease, Hx Diverticulitis, Hx Hepatitis, Hx Hiatal Hernia, Hx Irritable Bowel, Hx Ulcer, Hx Ulcerative Colitis Musculoskeltal Medical History: Reports Hx Arthritis - RT SHOULDER,rt hand, Reports Hx Musculoskeletal Trauma - rotator cuff injury Psychiatric Medical History: Reports: Hx Depression - post with 1st Infectious Medical History: Denies: Hx Hepatitis Past Surgical History: Reports: Hx Cholecystectomy, Hx Genitourinary Surgery - LEEP, Hx Gynecologic Surgery - right oophorectomy and salpingectomy, hemorrhagic left corpus luteum cyst, Hx Kidney (Renal Surgery) - urethral stricture, Hx Orthopedic Surgery - right hand, Hx Tubal Ligation, Hx Urinary Tract Surgery - URETHRAL STRICTURE. Denies: Hx Hysterectomy, Hx Mastectomy, Hx Open Heart Surgery, Hx Pacemaker - Immunizations Hx Diphtheria, Pertussis, Tetanus Vaccination: Yes Physical Exam - Vital signs Vitals: Temp Pulse Resp BP Pulse Ox 98.1 F 97 20 144/89 H 100 07/28/20 10:11 07/28/20 10:11 07/28/20 10:11 07/28/20 10:11 07/28/20 10:11 Course - Vital Signs Vital signs: Temp Pulse Resp BP Pulse Ox 98.1 F 97 20 144/89 H 100 07/28/20 10:11 07/28/20 10:11 07/28/20 10:11 07/28/20 10:11 07/28/20 10:11
[2020-07-28 11:42] LABS: ABSOLUTE LYMPHOCYTES (AUTO) 1.2 10^3/uL (0.5-4.7); ABSOLUTE MONOCYTES (AUTO) 0.3 10^3/uL (0.1-1.4); ABSOLUTE NEUT (AUTO) 2.1 10^3/uL (1.7-8.2); BASOPHILS % (AUTO) 0.8 % (0-2); EOSINOPHILS % (AUTO) 0.1 % (0-6); HEMATOCRIT 43.3 % (36.0-47.0); HEMOGLOBIN 14.4 g/dL (12.0-15.5); LYMPHOCYTES % (AUTO) 33.2 % (13-45); MEAN CORPUSCULAR HEMOGLOBIN 26.5 pg (27.0-33.4); MEAN CORPUSCULAR HGB CONC 33.2 g/dL (32.0-36.0); MEAN CORPUSCULAR VOLUME 80 fl (80-97); MONOCYTES % (AUTO) 9.4 % (3-13); PLATELET COUNT 290 10^3/uL (150-450); RED BLOOD COUNT 5.43 10^6/uL (3.72-5.28); RED CELL DISTRIBUTION WIDTH 14.9 % (11.5-14.0); SEGMENTED NEUTROPHILS % (AUTO) 56.5 % (42-78); TOTAL CELLS COUNTED % (AUTO) 100 %; WHITE BLOOD COUNT 3.7 10^3/uL (4.0-10.5)
[2020-07-28 11:50] LABS: INTERNATIONAL RATION (INR) 0.97
[2020-07-28 12:01] LABS: ALBUMIN 4.2 g/dL (3.5-5.0); ALKALINE PHOSPHATASE 77 U/L (38-126); ANION GAP 7 (5-19); ASPARTATE AMINO TRANSFERASE 25 U/L (14-36); BILIRUBIN,DIRECT 0.1 mg/dL (0.0-0.4); BILIRUBIN,TOTAL 0.4 mg/dL (0.2-1.3); BLOOD UREA NITROGEN 7 mg/dL (7-20); CALCIUM 9.1 mg/dL (8.4-10.2); CARBON DIOXIDE 26 mmol/L (22-30); CHLORIDE 107 mmol/L (98-107); GLUCOSE 105 mg/dL (75-110); POTASSIUM 4.1 mmol/L (3.6-5.0); TOTAL PROTEIN 7.5 g/dL (6.3-8.2)
--- NOTE | 2020-07-28 12:31 | RADIOLOGY REPORT (SQ) ---
EXAM DESCRIPTION: CHEST SINGLE VIEW IMAGES COMPLETED DATE/TIME: 07/28/2020 12:20 pm REASON FOR STUDY: cough + covid COMPARISON: None. EXAM PARAMETERS: NUMBER OF VIEWS: One view. TECHNIQUE: Single frontal radiographic view of the chest acquired. RADIATION DOSE: NA LIMITATIONS: None. FINDINGS: LUNGS AND PLEURA: Few subtle peripheral ground-glass opacities. No dense consolidation. No pleural effusion. No pneumothorax. MEDIASTINUM AND HILAR STRUCTURES: No masses. Contour normal. HEART AND VASCULAR STRUCTURES: Heart normal in size. Normal vasculature. BONES: No acute findings. HARDWARE: None in the chest. OTHER: No other significant finding. IMPRESSION: Few subtle peripheral ground-glass opacities compatible with given history of Covid-10 p neumonia. No focal consolidation. TECHNICAL DOCUMENTATION: JOB ID: [id number] 2010 [employer]- All Rights Reserved Reading location - IP/workstation name: [email or web address]
--- NOTE | 2020-07-28 13:09 | ER Document Report ---
Entered by REBECA SY SCRIBE 07/28/20 1235 Acting as scribe for:PADMINI EDOUARD MD ED Respiratory Problem - General Chief Complaint: Shortness Of Breath Stated Complaint: PAIN ALL OVER Time Seen by Provider: 07/28/20 11:02 Mode of Arrival: Ambulatory Information source: Patient Notes: This 40-year-old female patient presents to the emergency department today with complaints of a cough, shortness of breath, headache, and fevers. Patient reports that the symptoms began a week ago, two days after her symptoms began she was tested for COVID and it was positive. Patient complains of continued shortness of breath. Patient has had a DVT in the past, she is also on control. TRAVEL OUTSIDE OF THE [place] IN LAST 30 DAYS: No - Related Data Allergies/Adverse Reactions: acetaminophen [Acetaminophen] Allergy (Verified 07/11/19 15:51) hives, throat sore adhesive Allergy (Verified 07/11/19 15:51) Blisters diphenhydramine HCl [From Benadryl] Allergy (Verified 07/11/19 15:51) hydrocodone [Hydrocodone] Allergy (Verified 07/11/19 15:51) lisinopril Allergy (Verified 07/11/19 15:51) Sulfa (Sulfonamide Antibiotics) Allergy (Verified 07/11/19 15:51) sumatriptan [From Imitrex] Allergy (Verified 07/11/19 15:51) sumatriptan succinate [From Imitrex] Allergy (Verified 07/11/19 15:51) tramadol Adverse Reaction (Verified 07/11/19 15:51) BANDAIDS Allergy (Uncoded 03/19/19 12:57) Blisters Past Medical History - General Information source: Patient - Social History Smoking Status: Unknown if Ever Smoked Cigarette use (# per day): No Frequency of alcohol use: None Drug Abuse: None Lives with: Family Family History: Reviewed & Not Pertinent - Past Medical History Cardiac Medical History: Reports: Hx DVT, Hx Hypertension - not on meds for years Pulmonary Medical History: Reports: Hx Asthma - restrictive lung disease Neurological Medical History: Reports: Hx Migraine Renal/ Medical History: Reports: Hx Ectopic , Hx Kidney Stones, Hx Ovarian Cysts - left ovary removed GI Medical History: Reports: Hx Gastroesophageal Reflux Disease Musculoskeletal Medical History: Reports Hx Arthritis - RT SHOULDER,rt hand, Reports Hx Musculoskeletal Trauma - rotator cuff injury Psychiatric Medical History: Reports: Hx Depression - post with 1st Past Surgical History: Reports: Hx Cholecystectomy, Hx Genitourinary Surgery - LEEP, Hx Gynecologic Surgery - right oophorectomy and salpingectomy, hemorrhagic left corpus luteum cyst, Hx Kidney (Renal Surgery) - urethral stricture, Hx Orthopedic Surgery - right hand, Hx Tubal Ligation, Hx Urinary Tract Surgery - URETHRAL STRICTURE - Immunizations Hx Diphtheria, Pertussis, Tetanus Vaccination: Yes Review of Systems - Review of Systems Constitutional: See HPI, Fever EENT: No symptoms reported Cardiovascular: No symptoms reported Respiratory: See HPI, Cough, Short of breath Gastrointestinal: No symptoms reported Genitourinary: No symptoms reported Female Genitourinary: No symptoms reported Musculoskeletal: No symptoms reported Skin: No symptoms reported Hematologic/Lymphatic: No symptoms reported Neurological/Psychological: See HPI, Headaches -: Yes All other systems reviewed and negative Physical Exam - Vital signs Vitals: Temp Pulse Resp BP Pulse Ox 98.1 F 97 20 144/89 H 100 07/28/20 10:11 07/28/20 10:11 07/28/20 10:11 07/28/20 10:11 07/28/20 10:11 - Notes Notes: Physical Exam: General: Alert, appears well. HEENT: Normocephalic. Atraumatic. PERRL. Extraocular movements intact. Oropharynx clear. Neck: Supple. Non-tender. Respiratory: Mild respiratory distress, tachypneic. Harsh coarse breath sounds bilaterally. Rhonchi that clears with forced cough. Cardiovascular: Regular rate and rhythm. Abdominal: Normal Inspection. Non-tender. No distension. Normal Bowel Sounds. Back: No gross abnormalities. Extremities: Moves all four extremities. Upper extremities: Normal inspection. Normal ROM. Lower extremities: Normal inspection. No edema. Normal ROM. Neurological: Normal cognition. AAOx4. Normal speech. Psychological: Normal affect. Normal Mood. Skin: Warm. Dry. Normal color. Course - Re-evaluation Re-evalutation: 07/28/20 14:43 The chest x-ray is unremarkable. The D-dimer is undetectable. CRP is 11.3 Patient room air pulse oximetry readings are 98 to 100%, although the patient is a little tachypneic with respiratory rate of about 24. Patient reports she currently takes many of the recommended [id number] vitamins and has ordered some Quercetin. We will give her a dose of ivermectin here and a prescription for another dose in 2 days. She is also recommended to get a pulse oximetry fingertip machine to monitor her oxygen saturations at home. At this time her primary complaint in addition to shortness of breath, is aching all over. Advised her that she should take ibuprofen or Aleve for that discomfort. 07/28/20 14:48 The patient was evaluated during the global COVID-19 pandemic and that diagnosis was suspected/considered upon their initial presentation. Their evaluation, treatment and testing was consistent with current guidelines for patients who present with complaints or symptoms that may be related to COVID-19. - Vital Signs Vital signs: Temp Pulse Resp BP Pulse Ox 98.1 F 97 20 144/89 H 100 07/28/20 10:11 07/28/20 10:11 07/28/20 10:11 07/28/20 10:11 07/28/20 10:11 - Laboratory Results Result Diagrams: 07/28/20 11:17 07/28/20 11:17 Laboratory Results Interpreted: 07/28/20 07/28/20 11:17 11:17 WBC 3.7 L RBC 5.43 H MCH 26.5 L RDW 14.9 H C-Reactive Protein 11.3 H Critical Laboratory Results Reviewed: No Critical Results - Radiology Results Critical Radiology Results Reviewed: No Critical Results - EKG Interpretation by Me EKG shows normal: Sinus rhythm, [place], Intervals, QRS Complexes, ST-T Waves Rate: Normal - 92 Rhythm: NSR [place]/QRS: LBBB P Waves: LAE When compared to previous EKG there are: No significant change Discharge - Discharge Clinical Impression: COVID-19 virus infection, Dyspnea due to COVID-19, Generalized pain Condition: Stable Disposition: HOME, SELF-CARE Additional Instructions: The symptoms you are having of shortness of breath most likely due to the Covid 19 infection. This will also cause the headaches, fever, and generalized aching. Your evaluation today did not show evidence of blood clotting developing, and your chest x-ray was clear. You were given a dose of ivermectin here today, and a prescription for a second dose to take on Friday. Current recommendations for symptomatic patients at home include: Vitamin C 500 mg twice daily and Quercetin 250 to 500 mg twice daily. Zinc 100 mg/day. Melatonin 10 mg at night. Vitamin D3 2000 to 4000 international units/day. Aspirin 81 to 325 mg/day. B complex vitamins. An an optional medication suggested is Pepcid 40 mg twice daily. Take ibuprofen or Aleve for generalized pains. Drink plenty of fluids and get plenty of rest. Get a pulse oximeter to monitor your oxygen levels. RETURN TO THE EMERGENCY ROOM IF ANY NEW OR WORSENING SYMPTOMS. Prescriptions: Ivermectin [Stromectol 3 mg Tablet] 12 mg PO ONCE PRN #4 tablet PRN Reason: Referrals: YAW CORDON MD [Primary Care Provider] - Follow up as needed I personally performed the services described in the documentation, reviewed and edited the documentation which was dictated to the scribe in my presence, and it accurately records my words and actions.
[2020-07-28] MEDS ORDERED: IVERMECTIN 3 MG TABLET PO ONE (15:08)
[2020-07-28 15:17] VITALS: BP 142/88
--- NOTE | 2020-07-28 19:25 | EKG REPORT ---
SEVERITY:- ABNORMAL ECG - SINUS RHYTHM LEFT ATRIAL ABNORMALITY LEFT BUNDLE BRANCH BLOCK : Confirmed by: Radha Vasquez MD 28-Jul-2020 19:24:45
== END 2020-07-28 15:18 | disposition home or self-care (01) ==
LOC: ER 09:52
DX: U07.1 COVID-19 (principal); M79.10 Myalgia, unspecified site; R06.02 Shortness of breath; R06.00 Dyspnea, unspecified; R05 Cough; R51.9 Headache, unspecified; R50.9 Fever, unspecified; Z88.6 Allergy status to analgesic agent; Z88.2 Allergy status to sulfonamides
CPT/HCPCS: 93005; 99285; 36415; 85025; 85610; 86140; 80053; 84484; 85379; 71045; 93010; J3490